=== PATIENT | female | born 1955 | race Caucasian/White ===

== ENCOUNTER 2020-08-16 19:53 | Observation (INO) ==
[2020-08-16] MEDS ORDERED: 0.9 % Sodium Chloride 1,000 ML IVC ONE (20:15)
[2020-08-16 20:45] LABS: Basophils % 0.7 %; Eosinophils # 0.2 K/mcL (0.0-0.6); Eosinophils % 3.8 %; Hematocrit 36.8 % (35.3-44.9); Hemoglobin 12.7 g/dL (11.5-15.4); Immature Granulocytes % 0.3 % (0-4); Lymphocytes # 2.2 K/mcL (0.6-4.6); Lymphocytes % 35.1 %; Mean Corpuscular HGB Conc 34.5 g/dL (31.6-35.5); Mean Corpuscular Hemoglobin 33.4 pg (28.0-33.3); Mean Corpuscular Volume 96.8 fL (83.0-100.0); Mean Platelet Volume 9.8 fL (9.4-12.4); Monocytes # 0.5 K/mcL (0.0-1.3); Neutrophils # 3.2 K/mcL (1.6-8.9); Platelet Count 129 K/mcL (140-400); Red Cell Distribution Width 14.5 % (11.5-14.5); Segmented Neutrophils % 52.1 %; White Blood Count 6.1 K/mcL (4.3-11.1)
[2020-08-16] MEDS ORDERED: Morphine Sulfate 2 MG/ML SYRINGE IVP ONE (21:02)
[2020-08-16 21:06] LABS: Alanine Aminotransferase 22 Units/L (7-52); Albumin 4.5 g/dL (3.5-5.7); Albumin/Globulin Ratio 1.6 (1.1-2.2); Alkaline Phosphatase 100 Units/L (34-104); Aspartate Amino Transferase 48 Units/L (13-39); BUN/Creatinine Ratio 19 (6-26); Bilirubin,Total 0.3 mg/dL (0.3-1.0); Blood Urea Nitrogen 15 mg/dL (8-23); Calcium 8.9 mg/dL (8.6-10.3); Carbon Dioxide 23 mEq/L (23-29); Chloride 94 mEq/L (98-107); Globulin 2.8 g/dL (2.4-3.5); Glucose 95 mg/dL (70-105); Osmolality,Calculated 269 (280-300); Potassium 4.1 mEq/L (3.5-5.1); Sodium 129 mEq/L (136-145); Total Protein 7.3 g/dL (6.4-8.9); Troponin I < 0.03 ng/mL (< 0.04); eGFR For African Americans > 60 (> 60); eGFR For Non-African Americans > 60 (> 60)
[2020-08-16] MEDS ORDERED: Azithromycin 500 MG in 0.9 % Sodium Chloride 250 ML IVPB ONE (21:28)
[2020-08-16] MEDS ORDERED: cefTRIAXone 1,000 MG in Water for inj. (sterile) 10 ML IVP ONE (21:28)
[2020-08-17] MEDS ORDERED: Acetaminophen 325 MG TABLET PO PRN
[2020-08-17] MEDS ORDERED: 0.9 % Sodium Chloride 1,000 ML IVC SCH
[2020-08-17] MEDS ORDERED: Ondansetron ODT 4 MG TAB.RAPDIS SL PRN
[2020-08-17] MEDS ORDERED: Naloxone 0.4 MG/ML INJ IVP PRN
[2020-08-17] MEDS ORDERED: *HR* LORazepam 2 MG/ML VIAL IVP PRN (01:09)
[2020-08-17 02:33] LABS: Bilirubin,Urine Negative (Negative); Blood,Urine Negative (Negative); Clarity,Urine Clear (Clear); Color,Urine Colorless (Yellow); Glucose,Urine (UA) Normal (Normal); Ketones,Urine Negative (Negative); Leukocyte Esterase,Urine Moderate (Negative); Nitrite,Urine Negative (Negative); PH,Urine 6.5 pH Units (5.0-8.0); Protein,Urine Negative (Neg-Trace); RBC,Urine 0-3 per hpf (0-3); Specific Gravity,Urine 1.011 (1.010-1.025); Squamous Epithelial Cell,Urine Few per hpf (None-Few); Transitional Epi Cells,Urine Few per hpf (None-Few); Urobilinogen,Urine Normal (Normal)
[2020-08-17 02:38] LABS: Amphetamine Screen,Urine Negative ng/mL (Cutoff=1000); Barbiturate Screen,Urine Negative ng/mL (Cutoff=200); Benzodiazepines Screen,Urine Positive ng/mL (Cutoff=200); Cannabinoid Screen,Urine Negative ng/mL (Cutoff = 50); Cocaine Screen,Urine Negative ng/mL (Cutoff= 300); Opiate Screen,Urine Positive ng/mL (Cutoff=300); Phencyclidine Screen,Urine Negative ng/mL (Cutoff=25)
[2020-08-17 03:17] VITALS: BP 155/91
[2020-08-17 03:50] LABS: Mean Corpuscular Volume 102.7 fL (83.0-100.0); Red Cell Distribution Width 14.6 % (11.5-14.5)
[2020-08-17 03:52] LABS: Hematocrit 38.2 % (35.3-44.9); Hemoglobin 12.5 g/dL (11.5-15.4); Mean Corpuscular HGB Conc 32.7 g/dL (31.6-35.5); Mean Corpuscular Hemoglobin 33.6 pg (28.0-33.3); Mean Platelet Volume 10.1 fL (9.4-12.4); Red Blood Count 3.72 M/mcL (3.82-4.97); White Blood Count 6.1 K/mcL (4.3-11.1)
[2020-08-17 04:11] LABS: Ethanol < 10 mg/dL (Less than 10)
[2020-08-17 04:14] LABS: BUN/Creatinine Ratio 16 (6-26); Blood Urea Nitrogen 16 mg/dL (8-23); Calcium 8.4 mg/dL (8.6-10.3); Carbon Dioxide 25 mEq/L (23-29); Chloride 99 mEq/L (98-107); Glucose 92 mg/dL (70-105); Magnesium 1.5 mg/dL (1.6-2.6); Osmolality,Calculated 281 (280-300); Phosphorous 3.6 mg/dL (2.7-4.5); Potassium 3.7 mEq/L (3.5-5.1); Sodium 135 mEq/L (136-145); eGFR For African Americans > 60 (> 60); eGFR For Non-African Americans 56 (> 60)
[2020-08-17 04:29] LABS: Prolactin 8.12 ng/mL (3.80-23.20); Thyroid Stimulating Hormone 6.498 mcIU/mL (0.340-5.600)
[2020-08-17] MEDS ORDERED: cefTRIAXone 1,000 MG in Water for inj. (sterile) 10 ML IVP SCH (09:00)
[2020-08-17] MEDS ORDERED: levETIRAcetam 250 MG TABLET PO SCH (09:00)
[2020-08-17] MEDS ORDERED: (Terbinafine Hcl [Terbinafine Hcl] 250 MG) PO SCH (09:00)
[2020-08-17] MEDS ORDERED: FLU Vac QV 20-21 (6Month+)/PF 0.5 ML SYRINGE IM ONE (10:16)
== END 2020-08-17 11:05 | disposition home or self-care (01) ==
LOC: EMEROOARM 19:53 → 2ANU 19:53
PROVIDERS: ADMIT Student in an Organized Health Care Education/Training Program; ATTEND Student in an Organized Health Care Education/Training Program

== ENCOUNTER 2020-09-09 13:00 | Observation (INO) ==
[2020-09-09] MEDS ORDERED: Isovue-370 500 ML BOTTLE IVP ONE (13:14)
[2020-09-09] MEDS ORDERED: 0.9 % Sodium Chloride 1,000 ML IVC ONE ×2 (13:17→18:47)
[2020-09-09 13:46] LABS: Basophils # 0.1 K/mcL (0.0-0.2); Basophils % 0.9 %; Eosinophils # 0.2 K/mcL (0.0-0.6); Hematocrit 36.9 % (35.3-44.9); Hemoglobin 12.7 g/dL (11.5-15.4); Immature Granulocytes % 0.2 % (0-4); Lymphocytes # 1.7 K/mcL (0.6-4.6); Lymphocytes % 30.9 %; Mean Corpuscular HGB Conc 34.4 g/dL (31.6-35.5); Mean Corpuscular Hemoglobin 34.1 pg (28.0-33.3); Mean Corpuscular Volume 99.2 fL (83.0-100.0); Mean Platelet Volume 9.4 fL (9.4-12.4); Monocytes # 0.3 K/mcL (0.0-1.3); Monocytes % 5.9 %; Neutrophils # 3.3 K/mcL (1.6-8.9); Platelet Count 105 K/mcL (140-400); Red Blood Count 3.72 M/mcL (3.82-4.97); Red Cell Distribution Width 14.1 % (11.5-14.5); Segmented Neutrophils % 59.1 %; White Blood Count 5.6 K/mcL (4.3-11.1)
[2020-09-09] MEDS ORDERED: Ketorolac 15 MG/ML VIAL IVP ONE (14:09)
[2020-09-09 14:12] LABS: Bilirubin,Urine Negative (Negative); Blood,Urine Negative (Negative); Clarity,Urine Clear (Clear); Color,Urine Colorless (Yellow); Glucose,Urine (UA) Normal (Normal); Ketones,Urine Negative (Negative); Leukocyte Esterase,Urine Negative (Negative); Nitrite,Urine Negative (Negative); Protein,Urine Negative (Neg-Trace); Specific Gravity,Urine 1.011 (1.010-1.025); Urobilinogen,Urine Normal (Normal)
[2020-09-09 14:41] LABS: Alanine Aminotransferase 34 Units/L (7-52); Albumin 4.8 g/dL (3.5-5.7); Albumin/Globulin Ratio 1.8 (1.1-2.2); Alkaline Phosphatase 99 Units/L (34-104); Aspartate Amino Transferase 68 Units/L (13-39); BUN/Creatinine Ratio 16 (6-26); Bilirubin,Direct 0.1 mg/dL (0.0-0.2); Bilirubin,Indirect 0.3 mg/dL (0.0-1.0); Bilirubin,Total 0.4 mg/dL (0.3-1.0); Blood Urea Nitrogen 12 mg/dL (8-23); Calcium 8.9 mg/dL (8.6-10.3); Carbon Dioxide 26 mEq/L (23-29); Chloride 90 mEq/L (98-107); Globulin 2.7 g/dL (2.4-3.5); Glucose 94 mg/dL (70-105); Lipase 21 Units/L (11-82); Osmolality,Calculated 266 (280-300); Potassium 3.8 mEq/L (3.5-5.1); Sodium 128 mEq/L (136-145); Total Protein 7.5 g/dL (6.4-8.9); Troponin I < 0.03 ng/mL (< 0.04); eGFR For African Americans > 60 (> 60); eGFR For Non-African Americans > 60 (> 60)
[2020-09-09] MEDS ORDERED: Ipratropium/Albuterol Neb 3 ML ONE (15:10)
[2020-09-09] MEDS ORDERED: Ipratropium/Albuterol Neb 3 ML IH ONE (15:13)
[2020-09-09] MEDS ORDERED: Morphine Sulfate 2 MG/ML SYRINGE IVP STA ×2 (16:36→18:47)
[2020-09-09] MEDS ORDERED: Vancomycin 1,250 MG/262.5 ML IV.SOLN IVPB ONE (19:12)
[2020-09-09] MEDS ORDERED: Piperacillin/Tazobactam 3.375 GM in 0.9 % Sodium Chloride Mini Bag 100 ML IVPB ONE (19:12)
[2020-09-09 20:14] LABS: Ethanol 265 mg/dL (Less than 10)
[2020-09-09] MEDS ORDERED: *HR* Promethazine 25 MG/ML VIAL IM PRN (21:00)
[2020-09-09] MEDS ORDERED: *HR* OxyCODONE Immed Rel 5 MG TABLET PO PRN (21:00)
[2020-09-09] MEDS ORDERED: Acetaminophen 325 MG TABLET PO PRN (21:00)
[2020-09-09] MEDS ORDERED: Ringers Solution, Lactated 1,000 ML IVC SCH (21:00)
[2020-09-09] MEDS ORDERED: Naloxone 0.4 MG/ML INJ IVP PRN (21:00)
[2020-09-09] MEDS ORDERED: Ondansetron 4 MG/2 ML VIAL IVP PRN (21:00)
[2020-09-09] MEDS ORDERED: *HR* LORazepam 2 MG/ML VIAL IVP PRN ×3 (21:02)
[2020-09-09 21:23] VITALS: BP 146/89
[2020-09-10] MEDS ORDERED: Thiamine (B-1) 100 MG, Folic Acid 1 MG, MVI, adult with vitamin K 10 ML in 0.9 % Sodi... IVPB SCH (18:00)
== END 2020-09-09 22:51 | disposition left against medical advice (07) ==
LOC: 3BNU 13:00 → EMEROOARM 13:00 → 3BNU 21:22
PROVIDERS: ADMIT Family Medicine; ATTEND Family Medicine

== ENCOUNTER 2020-12-15 12:43 | Observation (INO) ==
[2020-12-15] MEDS ORDERED: 0.9 % Sodium Chloride 1,000 ML IVC ONE (12:51)
[2020-12-15 13:45] LABS: Basophils # 0.1 K/mcL (0.0-0.2); Basophils % 0.7 %; Eosinophils # 0.2 K/mcL (0.0-0.6); Eosinophils % 2.9 %; Hematocrit 40.7 % (35.3-44.9); Hemoglobin 13.7 g/dL (11.5-15.4); Immature Granulocytes % 0.7 % (0-4); Lymphocytes # 2.1 K/mcL (0.6-4.6); Lymphocytes % 28.2 %; Mean Corpuscular HGB Conc 33.7 g/dL (31.6-35.5); Mean Corpuscular Hemoglobin 33.3 pg (28.0-33.3); Mean Corpuscular Volume 98.8 fL (83.0-100.0); Mean Platelet Volume 10.9 fL (9.4-12.4); Monocytes # 0.4 K/mcL (0.0-1.3); Monocytes % 5.5 %; Neutrophils # 4.7 K/mcL (1.6-8.9); Platelet Count 142 K/mcL (140-400); Red Blood Count 4.12 M/mcL (3.82-4.97); Red Cell Distribution Width 14.3 % (11.5-14.5); White Blood Count 7.6 K/mcL (4.3-11.1)
[2020-12-15 14:02] LABS: Acetaminophen < 10 mcg/mL (10-20); BUN/Creatinine Ratio 29 (6-26); Blood Urea Nitrogen 26 mg/dL (8-23); Calcium 9.8 mg/dL (8.6-10.3); Carbon Dioxide 26 mEq/L (23-29); Chloride 95 mEq/L (98-107); Chol/HDL Ratio 2.9 (0-4.9); Cholesterol 174 mg/dL (< 200); Ethanol 237 mg/dL (Less than 10); Glucose 93 mg/dL (70-105); HDL Cholesterol 59 mg/dL (40-59); LDL Cholesterol,Calculated 67 mg/dL (< 100); Osmolality,Calculated 284 (280-300); Potassium 3.9 mEq/L (3.5-5.1); Salicylate < 2.5 mg/dL (15.0-30.0); Sodium 135 mEq/L (136-145); Triglycerides 238 mg/dL (< 150); eGFR For African Americans > 60 (> 60); eGFR For Non-African Americans > 60 (> 60)
[2020-12-15 14:12] LABS: Bilirubin,Urine Negative (Negative); Blood,Urine Negative (Negative); Clarity,Urine Clear (Clear); Color,Urine Colorless (Yellow); Glucose,Urine (UA) Normal (Normal); Ketones,Urine Trace mg/dL (Negative); Leukocyte Esterase,Urine Trace (Negative); Nitrite,Urine Negative (Negative); PH,Urine 5.5 pH Units (5.0-8.0); Protein,Urine Negative (Neg-Trace); RBC,Urine 0-3 per hpf (0-3); Specific Gravity,Urine 1.014 (1.010-1.025); Squamous Epithelial Cell,Urine Few per hpf (None-Few); Urobilinogen,Urine Normal (Normal)
[2020-12-15 14:20] LABS: Amphetamine Screen,Urine Negative ng/mL (Cutoff=1000); Barbiturate Screen,Urine Negative ng/mL (Cutoff=200); Benzodiazepines Screen,Urine Positive ng/mL (Cutoff=200); Cannabinoid Screen,Urine Negative ng/mL (Cutoff = 50); Cocaine Screen,Urine Negative ng/mL (Cutoff= 300); Opiate Screen,Urine Negative ng/mL (Cutoff=300); Phencyclidine Screen,Urine Negative ng/mL (Cutoff=25)
[2020-12-15] MEDS ORDERED: Naloxone 0.4 MG/ML INJ IVP PRN (16:06)
[2020-12-15] MEDS ORDERED: Ondansetron ODT 4 MG TAB.RAPDIS SL PRN (16:06)
[2020-12-15] MEDS ORDERED: MOM Conc 10 ML UD.LIQ PO PRN (16:06)
[2020-12-16] MEDS: *HR* Enoxaparin 40 MG/0.4 ML SYRINGE SQ SCH (05:03)
[2020-12-16 06:47] LABS: Hematocrit 39.2 % (35.3-44.9); Hemoglobin 13.2 g/dL (11.5-15.4); Mean Corpuscular HGB Conc 33.7 g/dL (31.6-35.5); Platelet Count 122 K/mcL (140-400); Red Blood Count 3.88 M/mcL (3.82-4.97); Red Cell Distribution Width 14.3 % (11.5-14.5); White Blood Count 7.1 K/mcL (4.3-11.1)
[2020-12-16 07:34] LABS: Alanine Aminotransferase 24 Units/L (7-52); Albumin 4.2 g/dL (3.5-5.7); Albumin/Globulin Ratio 1.3 (1.1-2.2); Alkaline Phosphatase 99 Units/L (34-104); Aspartate Amino Transferase 40 Units/L (13-39); BUN/Creatinine Ratio 32 (6-26); Bilirubin,Total 0.9 mg/dL (0.3-1.0); Blood Urea Nitrogen 27 mg/dL (8-23); Calcium 9.4 mg/dL (8.6-10.3); Carbon Dioxide 24 mEq/L (23-29); Chloride 98 mEq/L (98-107); Globulin 3.3 g/dL (2.4-3.5); Glucose 93 mg/dL (70-105); Osmolality,Calculated 285 (280-300); Potassium 3.8 mEq/L (3.5-5.1); Sodium 135 mEq/L (136-145); Total Protein 7.5 g/dL (6.4-8.9); eGFR For African Americans > 60 (> 60); eGFR For Non-African Americans > 60 (> 60)
[2020-12-16 09:32] LABS: Estimated Average Glucose 82 mg/dl; Hemoglobin A1C 4.5 %
[2020-12-17] MEDS ORDERED: Ketorolac 15 MG/ML VIAL IVP ONE ×2 (01:06→08:17)
[2020-12-17] MEDS: *HR* Enoxaparin 40 MG/0.4 ML SYRINGE SQ SCH (05:33)
[2020-12-17] MEDS ORDERED: levETIRAcetam 250 MG TABLET PO SCH (09:00)
[2020-12-17 11:54] VITALS: BP 110/75
[2020-12-17] MEDS ORDERED: *HR* OxyCODONE Immed Rel 5 MG TABLET PO PRN ×2 (14:01)
== END 2020-12-17 16:24 ==
LOC: 3BNU 12:43 → EMEROOARM 12:43 → SUATTDRO 15:42 → 3BNU 16:15
PROVIDERS: ADMIT Internal Medicine; ATTEND Registered Nurse

== ENCOUNTER 2021-01-04 13:07 | Inpatient (IN) ==
[~2021-01-04 13:07] MED LIST: *HR* Etomidate 20 MG/10 ML AMPUL IVP ONE; *HR* Rocuronium Bromide 50 MG/5 ML VIAL IVP ONE
[2021-01-04] MEDS ORDERED: *HR* FentaNYL (PF) 1,000 MCG/20 ML VIAL ONE (13:54)
[2021-01-04] MEDS: FentaNYL (PF) 1,000 MCG/100 ML IV.SOLN IVC SCH ×2 (14:07→22:16)
[2021-01-04 14:18] LABS: Bacteria,Urine Few per hpf (None-Few); Bilirubin,Urine Negative (Negative); Blood,Urine Negative (Negative); Clarity,Urine Clear (Clear); Color,Urine Light-Yellow (Yellow); Glucose,Urine (UA) Normal (Normal); Hyaline Casts,Urine Few per lpf (None Seen); Ketones,Urine Negative (Negative); Leukocyte Esterase,Urine Small (Negative); Mucus,Urine Few per lpf (None-Few); Nitrite,Urine Negative (Negative); PH,Urine 5.5 pH Units (5.0-8.0); Protein,Urine Negative (Neg-Trace); RBC,Urine 0-3 per hpf (0-3); Specific Gravity,Urine 1.022 (1.010-1.025); Squamous Epithelial Cell,Urine Few per hpf (None-Few); Urobilinogen,Urine Normal (Normal)
[2021-01-04 14:33] LABS: Amphetamine Screen,Urine Negative ng/mL (Cutoff=1000); Barbiturate Screen,Urine Negative ng/mL (Cutoff=200); Benzodiazepines Screen,Urine Positive ng/mL (Cutoff=200); Cannabinoid Screen,Urine Negative ng/mL (Cutoff = 50); Cocaine Screen,Urine Negative ng/mL (Cutoff= 300); Opiate Screen,Urine Negative ng/mL (Cutoff=300); Phencyclidine Screen,Urine Negative ng/mL (Cutoff=25)
[2021-01-04 15:02] LABS: Basophils # 0.1 K/mcL (0.0-0.2); Basophils % 0.7 %; Eosinophils # 0.2 K/mcL (0.0-0.6); Eosinophils % 1.4 %; Hematocrit 38.8 % (35.3-44.9); Hemoglobin 12.9 g/dL (11.5-15.4); Immature Granulocytes % 0.8 % (0-4); Lymphocytes # 2.9 K/mcL (0.6-4.6); Lymphocytes % 21.9 %; Mean Corpuscular HGB Conc 33.2 g/dL (31.6-35.5); Mean Corpuscular Hemoglobin 33.2 pg (28.0-33.3); Mean Platelet Volume 10.8 fL (9.4-12.4); Monocytes # 0.7 K/mcL (0.0-1.3); Neutrophils # 9.3 K/mcL (1.6-8.9); Platelet Count 160 K/mcL (140-400); Red Blood Count 3.88 M/mcL (3.82-4.97); Red Cell Distribution Width 14.5 % (11.5-14.5); Segmented Neutrophils % 70.2 %; White Blood Count 13.3 K/mcL (4.3-11.1)
[2021-01-04 15:11] LABS: INR 1.1; Prothrombin Time 12.7 Seconds (9.4-12.1)
[2021-01-04 15:14] LABS: Activated Partial Thrombo Time 27.8 Seconds (26.0-36.0)
[2021-01-04 15:24] LABS: Acetaminophen < 10 mcg/mL (10-20); Alanine Aminotransferase 51 Units/L (7-52); Albumin 3.9 g/dL (3.5-5.7); Albumin/Globulin Ratio 1.2 (1.1-2.2); Alkaline Phosphatase 130 Units/L (34-104); Aspartate Amino Transferase 101 Units/L (13-39); BUN/Creatinine Ratio 29 (6-26); Bilirubin,Direct 0.1 mg/dL (0.0-0.2); Bilirubin,Indirect 0.4 mg/dL (0.0-1.0); Bilirubin,Total 0.5 mg/dL (0.3-1.0); Blood Urea Nitrogen 21 mg/dL (8-23); Calcium 8.1 mg/dL (8.6-10.3); Carbon Dioxide 22 mEq/L (23-29); Chloride 100 mEq/L (98-107); Creatine Kinase 53 Units/L (30-223); Ethanol 291 mg/dL (Less than 10); Globulin 3.2 g/dL (2.4-3.5); Glucose 104 mg/dL (70-105); Osmolality,Calculated 285 (280-300); Potassium 3.8 mEq/L (3.5-5.1); Salicylate < 2.5 mg/dL (15.0-30.0); Sodium 136 mEq/L (136-145); Total Protein 7.1 g/dL (6.4-8.9); Troponin I < 0.03 ng/mL (< 0.04); eGFR For African Americans > 60 (> 60); eGFR For Non-African Americans > 60 (> 60)
[2021-01-04] MEDS ORDERED: Artificial Tears SOLN 15 ML BOTTLE BOTH EYES PRN (16:40)
[2021-01-04] MEDS ORDERED: Naloxone 0.4 MG/ML INJ IVP PRN (16:40)
[2021-01-04] MEDS ORDERED: D5% in 0.9% NACL w KCl 20 MEQ/1,000 ML MLS IVC SCH (17:15)
[2021-01-04] MEDS: Midazolam HCl 50 MG/100 ML IV.SOLN IVC SCH ×2 (17:20→22:20)
[2021-01-04] MEDS: Calcium Gluconate 1gm/50mL 1 GM/50 ML BAG IVPB SCH ×2 (17:55→18:28)
[2021-01-04] MEDS: *HR* Heparin 5,000 UNIT/ML VIAL SQ SCH (17:55)
[2021-01-04] MEDS: Pantoprazole 40 MG VIAL IVP SCH (17:55)
[2021-01-04] MEDS: D5% in Lactated Ringers 1,000 ML IVC SCH (19:00)
[2021-01-04 20:19] LABS: ABG Base Excess 0 mEq/L (-2 to 3); ABG HCO3 25 mEq/L (21-27); ABG Oxygen Saturation 97 % (95-98); ABG PCO2 41 mmHg (35-45); ABG PO2 91 mmHg (85-104); ABG TCO2 26 mEq/L (20-26); Blood Gas Modality AF; Blood Gas VT 500 cc
[2021-01-04] MEDS: Budesonide/Formoterol 160/4.5 1 PUFF INH IH SCH (20:23)
[2021-01-04 20:59] LABS: VBG Ionized Calcium 1.04 mmol/L (1.15-1.35)
[2021-01-04] MEDS: Artificial Tears SOLN 15 ML BOTTLE BOTH EYES SCH (21:00)
[2021-01-04] MEDS: Chlorhexidine Rinse 15 ML MOUTHWASH MM SCH (21:00)
[2021-01-04 21:16] LABS: Alanine Aminotransferase 42 Units/L (7-52); Albumin 3.6 g/dL (3.5-5.7); Albumin/Globulin Ratio 1.3 (1.1-2.2); Alkaline Phosphatase 106 Units/L (34-104); Aspartate Amino Transferase 70 Units/L (13-39); BUN/Creatinine Ratio 30 (6-26); Bilirubin,Total 0.6 mg/dL (0.3-1.0); Blood Urea Nitrogen 22 mg/dL (8-23); Calcium 8.6 mg/dL (8.6-10.3); Carbon Dioxide 24 mEq/L (23-29); Chloride 100 mEq/L (98-107); Globulin 2.8 g/dL (2.4-3.5); Glucose 95 mg/dL (70-105); Magnesium 1.3 mg/dL (1.6-2.6); Osmolality,Calculated 287 (280-300); Phosphorous 4.6 mg/dL (2.7-4.5); Potassium 4.1 mEq/L (3.5-5.1); Sodium 137 mEq/L (136-145); Total Protein 6.4 g/dL (6.4-8.9); eGFR For African Americans > 60 (> 60); eGFR For Non-African Americans > 60 (> 60)
[2021-01-04] MEDS: Calcium Gluconate 1gm/50mL 1 GM/50 ML BAG IVPB PRN (23:25)
[2021-01-05] MEDS: Artificial Tears SOLN 15 ML BOTTLE BOTH EYES SCH ×7 (00:28→21:22)
[2021-01-05] MEDS: Piperacillin/Tazobactam 3.375 GM in 0.9 % Sodium Chloride Mini Bag 100 ML IVPB SCH ×3 (00:30→15:58)
[2021-01-05 04:26] LABS: ABG Base Excess 2 mEq/L (-2 to 3); ABG HCO3 28 mEq/L (21-27); ABG Oxygen Saturation 95 % (95-98); ABG PCO2 45 mmHg (35-45); ABG PO2 75 mmHg (85-104); ABG TCO2 29 mEq/L (20-26); Blood Gas Modality AF; Blood Gas VT 500 cc
[2021-01-05] MEDS: FentaNYL (PF) 1,000 MCG/100 ML IV.SOLN IVC SCH (04:38)
[2021-01-05] MEDS: Midazolam HCl 50 MG/100 ML IV.SOLN IVC SCH ×2 (04:41→07:30)
[2021-01-05 05:05] LABS: VBG Ionized Calcium 0.96 mmol/L (1.15-1.35)
[2021-01-05 05:18] LABS: Albumin 3.5 g/dL (3.5-5.7); Albumin/Globulin Ratio 1.3 (1.1-2.2); Bilirubin,Direct 0.1 mg/dL (0.0-0.2); Bilirubin,Indirect 0.6 mg/dL (0.0-1.0); Bilirubin,Total 0.7 mg/dL (0.3-1.0); Calcium 8.3 mg/dL (8.6-10.3); Globulin 2.8 g/dL (2.4-3.5); Magnesium 1.2 mg/dL (1.6-2.6); Phosphorous 6.5 mg/dL (2.7-4.5); Potassium 4.6 mEq/L (3.5-5.1); Total Protein 6.3 g/dL (6.4-8.9)
[2021-01-05] MEDS: D5% in Lactated Ringers 1,000 ML IVC SCH ×2 (05:54→11:48)
[2021-01-05] MEDS: *HR* Heparin 5,000 UNIT/ML VIAL SQ SCH ×2 (05:54→18:12)
[2021-01-05 06:01] LABS: Basophils # 0.1 K/mcL (0.0-0.2); Basophils % 0.5 %; Eosinophils # 0.2 K/mcL (0.0-0.6); Eosinophils % 1.8 %; Hematocrit 35.1 % (35.3-44.9); Hemoglobin 11.4 g/dL (11.5-15.4); Immature Granulocytes % 0.5 % (0-4); Lymphocytes # 2.6 K/mcL (0.6-4.6); Lymphocytes % 20.3 %; Mean Corpuscular HGB Conc 32.5 g/dL (31.6-35.5); Mean Corpuscular Hemoglobin 33.5 pg (28.0-33.3); Mean Corpuscular Volume 103.2 fL (83.0-100.0); Mean Platelet Volume 11.2 fL (9.4-12.4); Monocytes # 1.2 K/mcL (0.0-1.3); Monocytes % 9.5 %; Neutrophils # 8.8 K/mcL (1.6-8.9); Platelet Count 122 K/mcL (140-400); Red Cell Distribution Width 14.8 % (11.5-14.5); Segmented Neutrophils % 67.4 %
[2021-01-05] MEDS: Calcium Gluconate 1gm/50mL 1 GM/50 ML BAG IVPB PRN ×3 (07:02→23:28)
[2021-01-05] MEDS: Budesonide/Formoterol 160/4.5 1 PUFF INH IH SCH ×2 (07:20→19:38)
[2021-01-05] MEDS: Chlorhexidine Rinse 15 ML MOUTHWASH MM SCH ×2 (07:44→19:19)
[2021-01-05] MEDS: Pantoprazole 40 MG VIAL IVP SCH (07:44)
[2021-01-05 10:31] LABS: VBG Ionized Calcium 0.97 mmol/L (1.15-1.35)
[2021-01-05 10:37] LABS: Hematocrit 33.9 % (35.3-44.9); Hemoglobin 11.3 g/dL (11.5-15.4); Mean Corpuscular HGB Conc 33.3 g/dL (31.6-35.5); Nucleated Red Blood Cells 0.2 /100 WBC (0); Red Cell Distribution Width 14.7 % (11.5-14.5)
[2021-01-05 10:39] LABS: Basophils # 0.1 K/mcL (0.0-0.2); Basophils % 0.5 %; Eosinophils # 0.2 K/mcL (0.0-0.6); Eosinophils % 1.8 %; Immature Granulocytes % 0.6 % (0-4); Immature Platelets 8.4 % (1.1-6.1); Lymphocytes # 2.5 K/mcL (0.6-4.6); Mean Corpuscular Hemoglobin 33.6 pg (28.0-33.3); Mean Corpuscular Volume 100.9 fL (83.0-100.0); Mean Platelet Volume 11.3 fL (9.4-12.4); Monocytes # 1.2 K/mcL (0.0-1.3); Monocytes % 9.1 %; Platelet Count 105 K/mcL (140-400); Red Blood Count 3.36 M/mcL (3.82-4.97); White Blood Count 13.1 K/mcL (4.3-11.1)
[2021-01-05 10:54] LABS: Albumin 3.6 g/dL (3.5-5.7); Albumin/Globulin Ratio 1.2 (1.1-2.2); Bilirubin,Total 1.1 mg/dL (0.3-1.0); Calcium 8.5 mg/dL (8.6-10.3); Magnesium 1.7 mg/dL (1.6-2.6); Phosphorous 5.7 mg/dL (2.7-4.5); Potassium 4.7 mEq/L (3.5-5.1); Total Protein 6.6 g/dL (6.4-8.9)
[2021-01-05] MEDS ORDERED: *HR* LORazepam 2 MG/ML VIAL IVP PRN ×3 (12:49)
[2021-01-05 13:30] LABS: VBG Ionized Calcium 1.04 mmol/L (1.15-1.35)
[2021-01-05 13:45] LABS: Calcium 8.6 mg/dL (8.6-10.3); Magnesium 1.6 mg/dL (1.6-2.6); Potassium 3.9 mEq/L (3.5-5.1)
[2021-01-05 15:16] LABS: VBG Ionized Calcium 1.08 mmol/L (1.15-1.35)
[2021-01-05 15:35] LABS: Albumin 3.7 g/dL (3.5-5.7); Albumin/Globulin Ratio 1.2 (1.1-2.2); Bilirubin,Total 1.3 mg/dL (0.3-1.0); Calcium 8.7 mg/dL (8.6-10.3); Magnesium 1.8 mg/dL (1.6-2.6); Phosphorous 4.8 mg/dL (2.7-4.5); Total Protein 6.7 g/dL (6.4-8.9)
[2021-01-05] MEDS ORDERED: Thiamine (B-1) 100 MG, Folic Acid 1 MG, MVI, adult with vitamin K 10 ML in 0.9 % Sodi... IVPB SCH (18:00)
[2021-01-05] MEDS: Doxycycline 100 MG in 0.9 % Sodium Chloride Mini Bag 100 ML IVPB SCH (20:21)
[2021-01-05] MEDS ORDERED: Acetaminophen 325 MG RECTAL SUPP RC PRN (20:39)
[2021-01-05] MEDS: Acetaminophen 325 MG TABLET PO PRN (21:10)
[2021-01-05 22:38] LABS: VBG Ionized Calcium 1.06 mmol/L (1.15-1.35)
[2021-01-05 22:39] LABS: Albumin 3.7 g/dL (3.5-5.7); Albumin/Globulin Ratio 1.3 (1.1-2.2); Bilirubin,Total 1.4 mg/dL (0.3-1.0); Calcium 8.5 mg/dL (8.6-10.3); Globulin 2.9 g/dL (2.4-3.5); Magnesium 1.9 mg/dL (1.6-2.6); Phosphorous 3.5 mg/dL (2.7-4.5); Potassium 3.9 mEq/L (3.5-5.1); Total Protein 6.6 g/dL (6.4-8.9)
[2021-01-06] MEDS: D5% in Lactated Ringers 1,000 ML IVC SCH (00:04)
[2021-01-06] MEDS: Piperacillin/Tazobactam 3.375 GM in 0.9 % Sodium Chloride Mini Bag 100 ML IVPB SCH ×2 (00:13→07:19)
[2021-01-06] MEDS: Artificial Tears SOLN 15 ML BOTTLE BOTH EYES SCH ×2 (02:24→07:16)
[2021-01-06] MEDS: Acetaminophen 325 MG TABLET PO PRN (03:41)
[2021-01-06 03:49] LABS: VBG Ionized Calcium 1.13 mmol/L (1.15-1.35)
[2021-01-06 04:09] LABS: Albumin 3.5 g/dL (3.5-5.7); Albumin/Globulin Ratio 1.3 (1.1-2.2); Bilirubin,Total 1.5 mg/dL (0.3-1.0); Calcium 8.5 mg/dL (8.6-10.3); Globulin 2.8 g/dL (2.4-3.5); Magnesium 1.8 mg/dL (1.6-2.6); Phosphorous 3.7 mg/dL (2.7-4.5); Potassium 3.7 mEq/L (3.5-5.1); Total Protein 6.3 g/dL (6.4-8.9)
[2021-01-06] MEDS: Doxycycline 100 MG in 0.9 % Sodium Chloride Mini Bag 100 ML IVPB SCH (05:00)
[2021-01-06] MEDS: *HR* Heparin 5,000 UNIT/ML VIAL SQ SCH ×2 (05:01→16:48)
[2021-01-06] MEDS: Calcium Gluconate 1gm/50mL 1 GM/50 ML BAG IVPB PRN (05:01)
[2021-01-06] MEDS: Chlorhexidine Rinse 15 ML MOUTHWASH MM SCH (07:16)
[2021-01-06] MEDS: Pantoprazole 40 MG VIAL IVP SCH (07:19)
[2021-01-06] MEDS: Budesonide/Formoterol 160/4.5 1 PUFF INH IH SCH ×3 (08:04→21:44)
[2021-01-06] MEDS ORDERED: levETIRAcetam 250 MG TABLET PO SCH (09:00)
[2021-01-06] MEDS ORDERED: Acetaminophen 325 MG TABLET PO PRN (09:02)
[2021-01-06] MEDS ORDERED: *HR* LORazepam 2 MG/ML VIAL IVP PRN ×2 (09:02)
[2021-01-06] MEDS ORDERED: Artificial Tears SOLN 15 ML BOTTLE BOTH EYES PRN (09:02)
[2021-01-06] MEDS: lisinopriL 20 MG TABLET PO SCH (09:27)
[2021-01-06] MEDS: hydroCHLOROthiazide 25 MG TABLET PO SCH (09:28)
[2021-01-06] MEDS: Thiamine (B-1) 100 MG TABLET PO SCH (09:28)
[2021-01-06 10:10] LABS: Hemoglobin 10.2 g/dL (11.5-15.4); Mean Corpuscular HGB Conc 32.9 g/dL (31.6-35.5); Mean Corpuscular Hemoglobin 33.8 pg (28.0-33.3); Mean Corpuscular Volume 102.6 fL (83.0-100.0); Mean Platelet Volume 11.9 fL (9.4-12.4); Platelet Count 114 K/mcL (140-400); Red Blood Count 3.02 M/mcL (3.82-4.97); Red Cell Distribution Width 14.6 % (11.5-14.5); White Blood Count 16.9 K/mcL (4.3-11.1)
[2021-01-06] MEDS: *HR* LORazepam 2 MG/ML VIAL IVP PRN (19:41)
[2021-01-06] MEDS ORDERED: Dexmedetomidine HCl 400 MCG/100 ML MLS IVC ONE (20:24)
[2021-01-06] MEDS: Dexmedetomidine HCl 400 MCG/100 ML MLS IVC SCH (20:41)
[2021-01-06] MEDS: levETIRAcetam 250 MG TABLET PO SCH (20:41)
[2021-01-06] MEDS ORDERED: *HR* LORazepam 2 MG/ML VIAL IVP STA (22:09)
[2021-01-06] MEDS ORDERED: *HR* LORazepam 2 MG/ML VIAL ONE (22:12)
[2021-01-06] MEDS ORDERED: Doxycycline 200 MG in 0.9 % Sodium Chloride Mini Bag 100 ML IVPB ONE (23:11)
[2021-01-06] MEDS ORDERED: Doxycycline 200 MG in 0.9 % Sodium Chloride 100 ML IVPB ONE (23:30)
[2021-01-07] MEDS ORDERED: Ziprasidone 10 MG in Water for inj. (sterile) 0.5 ML IM ONE (00:36)
[2021-01-07] MEDS: 0.9 % Sodium Chloride 1,000 ML IVC SCH ×2 (00:47→10:51)
[2021-01-07] MEDS: Dexmedetomidine HCl 400 MCG/100 ML MLS IVC SCH ×2 (00:54→08:17)
[2021-01-07] MEDS: *HR* Heparin 5,000 UNIT/ML VIAL SQ SCH ×2 (05:29→16:59)
[2021-01-07] MEDS: Budesonide/Formoterol 160/4.5 1 PUFF INH IH SCH ×2 (07:44→21:49)
[2021-01-07 07:45] LABS: Hemoglobin 9.2 g/dL (11.5-15.4); Red Cell Distribution Width 14.3 % (11.5-14.5)
[2021-01-07 07:47] LABS: Hematocrit 28.3 % (35.3-44.9); Immature Platelets 8.5 % (1.1-6.1); Mean Corpuscular HGB Conc 32.5 g/dL (31.6-35.5); Mean Corpuscular Hemoglobin 33.6 pg (28.0-33.3); Mean Corpuscular Volume 103.3 fL (83.0-100.0); Mean Platelet Volume 12.2 fL (9.4-12.4); Red Blood Count 2.74 M/mcL (3.82-4.97); White Blood Count 7.7 K/mcL (4.3-11.1)
[2021-01-07 08:10] LABS: BUN/Creatinine Ratio 28 (6-26); Blood Urea Nitrogen 30 mg/dL (8-23); Calcium 8.6 mg/dL (8.6-10.3); Carbon Dioxide 25 mEq/L (23-29); Chloride 104 mEq/L (98-107); Glucose 100 mg/dL (70-105); Osmolality,Calculated 290 (280-300); Potassium 3.2 mEq/L (3.5-5.1); Sodium 137 mEq/L (136-145); eGFR For African Americans > 60 (> 60); eGFR For Non-African Americans 50 (> 60)
[2021-01-07] MEDS: lisinopriL 20 MG TABLET PO SCH (08:13)
[2021-01-07] MEDS: hydroCHLOROthiazide 25 MG TABLET PO SCH (08:13)
[2021-01-07] MEDS: Thiamine (B-1) 100 MG TABLET PO SCH (08:13)
[2021-01-07] MEDS: levETIRAcetam 250 MG TABLET PO SCH ×2 (08:13→21:23)
[2021-01-07] MEDS ORDERED: 0.9 % Sodium Chloride 500 ML IV ONE (10:48)
[2021-01-07] MEDS ORDERED: Ipratropium/Albuterol Neb 3 ML IH SCH (21:00)
[2021-01-07] MEDS: Ipratropium/Albuterol Neb 3 ML IH SCH ×2 (21:35→23:25)
[2021-01-07] MEDS: Albuterol 2.5 MG/3 ML NEBULIZER IH PRN (21:46)
[2021-01-08] MEDS: Albuterol 2.5 MG/3 ML NEBULIZER IH PRN ×3 (02:10→08:49)
[2021-01-08] MEDS: Ipratropium/Albuterol Neb 3 ML IH SCH ×6 (03:21→23:18)
[2021-01-08] MEDS ORDERED: *HR* Metoprolol 5 MG/5 ML VIAL IVP ONE ×2 (03:44→06:06)
[2021-01-08] MEDS: *HR* Heparin 5,000 UNIT/ML VIAL SQ SCH ×2 (05:49→17:27)
[2021-01-08] MEDS: MethylPREDNISolone 40 MG/ML VIAL IVP SCH ×2 (05:49→17:27)
[2021-01-08 06:16] LABS: Red Cell Distribution Width 14.2 % (11.5-14.5)
[2021-01-08 06:18] LABS: Hematocrit 29.5 % (35.3-44.9); Hemoglobin 9.9 g/dL (11.5-15.4); Immature Platelets 7.7 % (1.1-6.1); Mean Corpuscular HGB Conc 33.6 g/dL (31.6-35.5); Mean Corpuscular Hemoglobin 33.4 pg (28.0-33.3); Mean Corpuscular Volume 99.7 fL (83.0-100.0); Mean Platelet Volume 11.2 fL (9.4-12.4); Red Blood Count 2.96 M/mcL (3.82-4.97); White Blood Count 6.6 K/mcL (4.3-11.1)
[2021-01-08 06:19] LABS: BUN/Creatinine Ratio 21 (6-26); Blood Urea Nitrogen 18 mg/dL (8-23); Calcium 8.7 mg/dL (8.6-10.3); Carbon Dioxide 28 mEq/L (23-29); Chloride 105 mEq/L (98-107); Glucose 110 mg/dL (70-105); Osmolality,Calculated 295 (280-300); Potassium 3.4 mEq/L (3.5-5.1); Sodium 141 mEq/L (136-145); eGFR For African Americans > 60 (> 60); eGFR For Non-African Americans > 60 (> 60)
[2021-01-08] MEDS: Budesonide/Formoterol 160/4.5 1 PUFF INH IH SCH ×2 (07:57→19:48)
[2021-01-08] MEDS: Thiamine (B-1) 100 MG TABLET PO SCH (08:34)
[2021-01-08] MEDS: levETIRAcetam 250 MG TABLET PO SCH ×2 (08:34→19:57)
[2021-01-08] MEDS ORDERED: Ipratropium Neb 0.5 MG NEBULIZER IH PRN (08:35)
[2021-01-08] MEDS ORDERED: Albuterol 2.5 MG/3 ML NEBULIZER IH ONE (08:44)
[2021-01-08] MEDS ORDERED: methylPREDNISolone 125 MG/2 ML VIAL IVP ONE (09:08)
[2021-01-08] MEDS ORDERED: *HR* EPINEPHrine 1 MG/10 ML SYRINGE ONE (09:21)
[2021-01-08] MEDS ORDERED: Racepinephrine Neb 0.5 ML VIAL IH ONE ×2 (09:25→09:33)
[2021-01-08] MEDS ORDERED: Ondansetron 4 MG/2 ML VIAL ONE (09:36)
[2021-01-08] MEDS ORDERED: *HR* Propofol 200 MG/20 ML VIAL IVP ONE (09:36)
[2021-01-08] MEDS ORDERED: *HR* FentaNYL (PF) 100 MCG/2 ML VIAL ONE (09:36)
[2021-01-08] MEDS ORDERED: Lidocaine -MPF 4% 5 ML AMPUL ONE ×2 (09:36→09:51)
[2021-01-08] MEDS ORDERED: *HR* Succinylcholine 200 MG/10 ML VIAL IVP ONE (09:36)
[2021-01-08] MEDS ORDERED: Dexamethasone 4 MG/ML VIAL ONE (09:36)
[2021-01-08] MEDS ORDERED: Lidocaine -MPF 2% 2 ML VIAL ONE (09:36)
[2021-01-08] MEDS ORDERED: *HR* Midazolam HCl 5 MG/5 ML VIAL IVP ONE (10:04)
[2021-01-08] MEDS ORDERED: *HR* Midazolam HCl 2 MG/2 ML VIAL ONE (10:04)
[2021-01-08] MEDS ORDERED: Lacri-Lube 3.5 GM TUBE ONE (10:26)
[2021-01-08] MEDS ORDERED: Naloxone 0.4 MG/ML INJ IVP PRN (11:00)
[2021-01-08] MEDS ORDERED: Artificial Tears SOLN 15 ML BOTTLE BOTH EYES PRN (11:02)
[2021-01-08] MEDS: *HR* LORazepam 2 MG/ML VIAL IVP PRN (11:33)
[2021-01-08 11:51] LABS: ABG Base Excess 1 mEq/L (-2 to 3); ABG HCO3 25 mEq/L (21-27); ABG Oxygen Saturation 95 % (95-98); ABG PCO2 38 mmHg (35-45); ABG PH 7.43 pH Units (7.32-7.45); ABG PO2 73 mmHg (85-104); ABG TCO2 26 mEq/L (20-26); Blood Gas Modality ASSIST CONTROL; Blood Gas VT 500 cc
[2021-01-08] MEDS: Artificial Tears SOLN 15 ML BOTTLE BOTH EYES SCH ×4 (11:56→23:51)
[2021-01-08] MEDS: FentaNYL (PF) 1,000 MCG/100 ML IV.SOLN IVC SCH (12:02)
[2021-01-08] MEDS: Midazolam HCl 50 MG/100 ML IV.SOLN IVC SCH (12:02)
[2021-01-08] MEDS ORDERED: Potassium Chloride Elixir 20 MEQ/15 ML UDC GTUBE PRN (18:51)
[2021-01-08] MEDS: Chlorhexidine Rinse 15 ML MOUTHWASH MM SCH (19:57)
[2021-01-08] MEDS ORDERED: 0.9 % Sodium Chloride 1,000 ML IVC ONE (22:34)
[2021-01-09] MEDS: FentaNYL (PF) 1,000 MCG/100 ML IV.SOLN IVC SCH ×2 (00:07→15:30)
[2021-01-09] MEDS: Midazolam HCl 50 MG/100 ML IV.SOLN IVC SCH ×3 (01:33→22:45)
[2021-01-09] MEDS: Ipratropium/Albuterol Neb 3 ML IH SCH ×6 (03:21→23:41)
[2021-01-09] MEDS: Artificial Tears SOLN 15 ML BOTTLE BOTH EYES SCH ×6 (04:00→23:11)
[2021-01-09 04:43] LABS: ABG Base Excess 1 mEq/L (-2 to 3); ABG HCO3 25 mEq/L (21-27); ABG Oxygen Saturation 88 % (95-98); ABG PCO2 40 mmHg (35-45); ABG PH 7.41 pH Units (7.32-7.45); ABG PO2 54 mmHg (85-104); ABG TCO2 27 mEq/L (20-26); Blood Gas Modality AF; Blood Gas VT 500 cc
[2021-01-09 05:16] LABS: INR 1.2; Prothrombin Time 13.5 Seconds (9.4-12.1)
[2021-01-09] MEDS: *HR* Heparin 5,000 UNIT/ML VIAL SQ SCH ×2 (05:29→19:35)
[2021-01-09] MEDS: MethylPREDNISolone 40 MG/ML VIAL IVP SCH ×2 (05:29→19:35)
[2021-01-09 06:04] LABS: Basophils % 0.2 %; Hematocrit 26.5 % (35.3-44.9); Hemoglobin 8.4 g/dL (11.5-15.4); Immature Granulocytes % 0.6 % (0-4); Immature Platelets 4.8 % (1.1-6.1); Lymphocytes # 0.5 K/mcL (0.6-4.6); Lymphocytes % 7.3 %; Mean Corpuscular HGB Conc 31.7 g/dL (31.6-35.5); Mean Corpuscular Hemoglobin 33.9 pg (28.0-33.3); Mean Corpuscular Volume 106.9 fL (83.0-100.0); Mean Platelet Volume 10.9 fL (9.4-12.4); Monocytes # 0.3 K/mcL (0.0-1.3); Monocytes % 4.9 %; Neutrophils # 5.5 K/mcL (1.6-8.9); Platelet Count 103 K/mcL (140-400); Red Blood Count 2.48 M/mcL (3.82-4.97); Red Cell Distribution Width 14.9 % (11.5-14.5); White Blood Count 6.3 K/mcL (4.3-11.1)
[2021-01-09 06:12] LABS: Alanine Aminotransferase 19 Units/L (7-52); Albumin 3.2 g/dL (3.5-5.7); Albumin/Globulin Ratio 1.2 (1.1-2.2); Alkaline Phosphatase 71 Units/L (34-104); Aspartate Amino Transferase 26 Units/L (13-39); BUN/Creatinine Ratio 39 (6-26); Bilirubin,Total 0.4 mg/dL (0.3-1.0); Blood Urea Nitrogen 38 mg/dL (8-23); Calcium 7.8 mg/dL (8.6-10.3); Carbon Dioxide 26 mEq/L (23-29); Chloride 108 mEq/L (98-107); Globulin 2.7 g/dL (2.4-3.5); Glucose 142 mg/dL (70-105); Magnesium 1.4 mg/dL (1.6-2.6); Osmolality,Calculated 303 (280-300); Potassium 3.6 mEq/L (3.5-5.1); Sodium 141 mEq/L (136-145); Total Protein 5.9 g/dL (6.4-8.9); eGFR For African Americans > 60 (> 60); eGFR For Non-African Americans 57 (> 60)
[2021-01-09] MEDS: Calcium Gluconate 1gm/50mL 1 GM/50 ML BAG IVPB SCH ×2 (06:25→10:16)
[2021-01-09] MEDS: Budesonide/Formoterol 160/4.5 1 PUFF INH IH SCH ×2 (07:56→19:42)
[2021-01-09] MEDS: levETIRAcetam 500 MG/5 ML UDC GTUBE SCH ×2 (10:14→20:00)
[2021-01-09] MEDS: Chlorhexidine Rinse 15 ML MOUTHWASH MM SCH ×2 (10:14→20:00)
[2021-01-09] MEDS: Pantoprazole 40 MG VIAL IVP SCH (10:14)
[2021-01-09] MEDS: Famotidine 20 MG TABLET PO SCH ×2 (10:14→20:01)
[2021-01-09] MEDS: Dexmedetomidine HCl 400 MCG/100 ML MLS IVC SCH (12:20)
[2021-01-09] MEDS: Thiamine (B-1) 100 MG TABLET PO SCH ×2 (15:44→20:01)
[2021-01-09 18:17] LABS: BUN/Creatinine Ratio 52 (6-26); Blood Urea Nitrogen 48 mg/dL (8-23); Calcium 8.8 mg/dL (8.6-10.3); Carbon Dioxide 25 mEq/L (23-29); Chloride 107 mEq/L (98-107); Glucose 117 mg/dL (70-105); Osmolality,Calculated 302 (280-300); Potassium 4.3 mEq/L (3.5-5.1); Sodium 139 mEq/L (136-145); eGFR For African Americans > 60 (> 60); eGFR For Non-African Americans > 60 (> 60)
[2021-01-10] MEDS: Ipratropium/Albuterol Neb 3 ML IH SCH ×6 (03:08→23:29)
[2021-01-10] MEDS: Artificial Tears SOLN 15 ML BOTTLE BOTH EYES SCH ×6 (03:19→23:42)
[2021-01-10 04:05] LABS: Hematocrit 29.2 % (35.3-44.9); Hemoglobin 9.1 g/dL (11.5-15.4); Mean Corpuscular HGB Conc 31.2 g/dL (31.6-35.5); Mean Corpuscular Hemoglobin 33.7 pg (28.0-33.3); Mean Corpuscular Volume 108.1 fL (83.0-100.0); Mean Platelet Volume 11.4 fL (9.4-12.4); Platelet Count 116 K/mcL (140-400); Red Cell Distribution Width 15.5 % (11.5-14.5)
[2021-01-10 04:20] LABS: VBG Ionized Calcium 1.08 mmol/L (1.15-1.35)
[2021-01-10 04:27] LABS: BUN/Creatinine Ratio 65 (6-26); Blood Urea Nitrogen 58 mg/dL (8-23); Calcium 8.6 mg/dL (8.6-10.3); Carbon Dioxide 24 mEq/L (23-29); Chloride 108 mEq/L (98-107); Glucose 124 mg/dL (70-105); Magnesium 2.3 mg/dL (1.6-2.6); Osmolality,Calculated 304 (280-300); Phosphorous 3.1 mg/dL (2.7-4.5); Potassium 4.6 mEq/L (3.5-5.1); Sodium 138 mEq/L (136-145); eGFR For African Americans > 60 (> 60); eGFR For Non-African Americans > 60 (> 60)
[2021-01-10 04:44] LABS: ABG Base Excess 1 mEq/L (-2 to 3); ABG HCO3 25 mEq/L (21-27); ABG Oxygen Saturation 93 % (95-98); ABG PCO2 37 mmHg (35-45); ABG PH 7.44 pH Units (7.32-7.45); ABG PO2 64 mmHg (85-104); ABG TCO2 26 mEq/L (20-26); Blood Gas Modality AF; Blood Gas VT 500 cc
[2021-01-10] MEDS: FentaNYL (PF) 1,000 MCG/100 ML IV.SOLN IVC SCH ×2 (04:46→17:39)
[2021-01-10] MEDS: *HR* Heparin 5,000 UNIT/ML VIAL SQ SCH ×2 (05:11→17:01)
[2021-01-10] MEDS: MethylPREDNISolone 40 MG/ML VIAL IVP SCH ×2 (05:11→17:00)
[2021-01-10] MEDS: Pantoprazole 40 MG VIAL IVP SCH (07:26)
[2021-01-10] MEDS: levETIRAcetam 500 MG/5 ML UDC GTUBE SCH ×2 (07:26→19:22)
[2021-01-10] MEDS: Thiamine (B-1) 100 MG TABLET PO SCH ×3 (07:27→19:22)
[2021-01-10] MEDS: Chlorhexidine Rinse 15 ML MOUTHWASH MM SCH ×2 (07:27→19:22)
[2021-01-10] MEDS: Famotidine 20 MG TABLET PO SCH ×2 (07:27→19:22)
[2021-01-10] MEDS: Dexmedetomidine HCl 400 MCG/100 ML MLS IVC SCH (07:33)
[2021-01-10] MEDS: Budesonide/Formoterol 160/4.5 1 PUFF INH IH SCH ×2 (08:03→19:52)
[2021-01-10] MEDS: Midazolam HCl 50 MG/100 ML IV.SOLN IVC SCH ×2 (08:19→17:34)
[2021-01-11] MEDS: Midazolam HCl 50 MG/100 ML IV.SOLN IVC SCH (01:54)
[2021-01-11] MEDS: Artificial Tears SOLN 15 ML BOTTLE BOTH EYES SCH ×5 (03:25→19:57)
[2021-01-11] MEDS: Ipratropium/Albuterol Neb 3 ML IH SCH ×6 (04:19→22:47)
[2021-01-11 04:40] LABS: ABG Base Excess 1 mEq/L (-2 to 3); ABG HCO3 25 mEq/L (21-27); ABG Oxygen Saturation 94 % (95-98); ABG PCO2 34 mmHg (35-45); ABG PH 7.47 pH Units (7.32-7.45); ABG PO2 65 mmHg (85-104); ABG TCO2 26 mEq/L (20-26); Blood Gas VT 500 cc
[2021-01-11] MEDS: MethylPREDNISolone 40 MG/ML VIAL IVP SCH ×2 (05:00→17:22)
[2021-01-11] MEDS: *HR* Heparin 5,000 UNIT/ML VIAL SQ SCH ×2 (05:01→17:22)
[2021-01-11 06:20] LABS: Hematocrit 27.8 % (35.3-44.9); Hemoglobin 8.6 g/dL (11.5-15.4); Mean Corpuscular HGB Conc 30.9 g/dL (31.6-35.5); Mean Corpuscular Volume 109.9 fL (83.0-100.0); Mean Platelet Volume 10.9 fL (9.4-12.4); Platelet Count 110 K/mcL (140-400); Red Blood Count 2.53 M/mcL (3.82-4.97); Red Cell Distribution Width 15.6 % (11.5-14.5); White Blood Count 4.9 K/mcL (4.3-11.1)
[2021-01-11 06:40] LABS: BUN/Creatinine Ratio 64 (6-26); Blood Urea Nitrogen 58 mg/dL (8-23); Calcium 8.7 mg/dL (8.6-10.3); Carbon Dioxide 23 mEq/L (23-29); Chloride 112 mEq/L (98-107); Glucose 97 mg/dL (70-105); Magnesium 2.1 mg/dL (1.6-2.6); Osmolality,Calculated 310 (280-300); Phosphorous 3.3 mg/dL (2.7-4.5); Potassium 3.9 mEq/L (3.5-5.1); Sodium 142 mEq/L (136-145); eGFR For African Americans > 60 (> 60); eGFR For Non-African Americans > 60 (> 60)
[2021-01-11] MEDS: Budesonide/Formoterol 160/4.5 1 PUFF INH IH SCH ×2 (07:23→19:46)
[2021-01-11] MEDS: levETIRAcetam 500 MG/5 ML UDC GTUBE SCH ×2 (08:16→19:56)
[2021-01-11] MEDS: Chlorhexidine Rinse 15 ML MOUTHWASH MM SCH ×2 (08:16→19:56)
[2021-01-11] MEDS: Pantoprazole 40 MG VIAL IVP SCH (08:16)
[2021-01-11] MEDS: Famotidine 20 MG TABLET PO SCH ×2 (08:17→19:56)
[2021-01-11] MEDS: Dexmedetomidine HCl 400 MCG/100 ML MLS IVC SCH (08:17)
[2021-01-11] MEDS: Thiamine (B-1) 100 MG TABLET PO SCH ×3 (08:17→19:56)
[2021-01-11] MEDS: FentaNYL (PF) 1,000 MCG/100 ML IV.SOLN IVC SCH ×2 (08:33→20:30)
[2021-01-12] MEDS: Artificial Tears SOLN 15 ML BOTTLE BOTH EYES SCH ×7 (00:10→23:04)
[2021-01-12 03:55] LABS: Hematocrit 29.4 % (35.3-44.9); Hemoglobin 9.1 g/dL (11.5-15.4); Mean Corpuscular Hemoglobin 33.7 pg (28.0-33.3); Mean Corpuscular Volume 108.9 fL (83.0-100.0); Mean Platelet Volume 10.9 fL (9.4-12.4); Platelet Count 116 K/mcL (140-400); Red Cell Distribution Width 15.5 % (11.5-14.5); White Blood Count 5.4 K/mcL (4.3-11.1)
[2021-01-12] MEDS: FentaNYL (PF) 1,000 MCG/100 ML IV.SOLN IVC SCH ×2 (04:00→11:37)
[2021-01-12] MEDS: Ipratropium/Albuterol Neb 3 ML IH SCH ×5 (04:03→19:40)
[2021-01-12 04:15] LABS: BUN/Creatinine Ratio 63 (6-26); Blood Urea Nitrogen 52 mg/dL (8-23); Calcium 8.7 mg/dL (8.6-10.3); Carbon Dioxide 21 mEq/L (23-29); Chloride 109 mEq/L (98-107); Glucose 111 mg/dL (70-105); Magnesium 2.2 mg/dL (1.6-2.6); Osmolality,Calculated 307 (280-300); Phosphorous 4.2 mg/dL (2.7-4.5); Sodium 141 mEq/L (136-145); eGFR For African Americans > 60 (> 60); eGFR For Non-African Americans > 60 (> 60)
[2021-01-12 04:54] LABS: VBG Ionized Calcium 1.16 mmol/L (1.15-1.35)
[2021-01-12 04:55] LABS: ABG Base Excess 0 mEq/L (-2 to 3); ABG HCO3 24 mEq/L (21-27); ABG Oxygen Saturation 97 % (95-98); ABG PCO2 36 mmHg (35-45); ABG PH 7.43 pH Units (7.32-7.45); ABG PO2 90 mmHg (85-104); ABG TCO2 25 mEq/L (20-26); Blood Gas VT 500 cc
[2021-01-12] MEDS: *HR* Heparin 5,000 UNIT/ML VIAL SQ SCH ×2 (06:02→17:08)
[2021-01-12] MEDS: MethylPREDNISolone 40 MG/ML VIAL IVP SCH ×2 (06:02→17:08)
[2021-01-12] MEDS: Budesonide/Formoterol 160/4.5 1 PUFF INH IH SCH ×2 (07:14→19:40)
[2021-01-12] MEDS: Dexmedetomidine HCl 400 MCG/100 ML MLS IVC SCH ×2 (07:59→23:04)
[2021-01-12] MEDS: Famotidine 20 MG TABLET PO SCH ×2 (08:04→19:33)
[2021-01-12] MEDS: Pantoprazole 40 MG VIAL IVP SCH (08:04)
[2021-01-12] MEDS: Thiamine (B-1) 100 MG TABLET PO SCH ×3 (08:04→19:32)
[2021-01-12] MEDS: levETIRAcetam 500 MG/5 ML UDC GTUBE SCH ×2 (08:04→19:32)
[2021-01-12] MEDS: Chlorhexidine Rinse 15 ML MOUTHWASH MM SCH ×2 (08:04→19:33)
[2021-01-12] MEDS: Ringers Solution, Lactated 1,000 ML IVC SCH ×2 (10:24→20:13)
[2021-01-12] MEDS: FentaNYL (PF) 2,500 MCG/50 ML IV.SOLN IVC SCH (17:03)
[2021-01-13] MEDS: Ipratropium/Albuterol Neb 3 ML IH SCH ×7 (00:17→23:05)
[2021-01-13] MEDS: Artificial Tears SOLN 15 ML BOTTLE BOTH EYES SCH ×6 (03:16→23:53)
[2021-01-13 05:06] LABS: ABG Base Excess 1 mEq/L (-2 to 3); ABG HCO3 26 mEq/L (21-27); ABG Oxygen Saturation 98 % (95-98); ABG PCO2 44 mmHg (35-45); ABG PH 7.39 pH Units (7.32-7.45); ABG PO2 102 mmHg (85-104); ABG TCO2 28 mEq/L (20-26); Blood Gas Modality ASSIST CONTROL; Blood Gas VT 450 cc
[2021-01-13 07:23] LABS: Hematocrit 30.8 % (35.3-44.9); Hemoglobin 9.6 g/dL (11.5-15.4); Mean Corpuscular HGB Conc 31.2 g/dL (31.6-35.5); Mean Corpuscular Hemoglobin 34.3 pg (28.0-33.3); Platelet Count 119 K/mcL (140-400); White Blood Count 7.2 K/mcL (4.3-11.1)
[2021-01-13] MEDS: Ringers Solution, Lactated 1,000 ML IVC SCH (07:30)
[2021-01-13] MEDS: MethylPREDNISolone 40 MG/ML VIAL IVP SCH ×2 (07:30→18:14)
[2021-01-13] MEDS: *HR* Heparin 5,000 UNIT/ML VIAL SQ SCH ×2 (07:30→18:14)
[2021-01-13] MEDS: FentaNYL (PF) 2,500 MCG/50 ML IV.SOLN IVC SCH (07:31)
[2021-01-13] MEDS: Budesonide/Formoterol 160/4.5 1 PUFF INH IH SCH ×2 (07:33→20:11)
[2021-01-13] MEDS: Pantoprazole 40 MG VIAL IVP SCH (07:36)
[2021-01-13] MEDS: Chlorhexidine Rinse 15 ML MOUTHWASH MM SCH ×2 (07:37→19:22)
[2021-01-13] MEDS: levETIRAcetam 500 MG/5 ML UDC GTUBE SCH ×2 (07:37→19:30)
[2021-01-13] MEDS: Famotidine 20 MG TABLET PO SCH ×2 (07:37→19:31)
[2021-01-13] MEDS: Thiamine (B-1) 100 MG TABLET PO SCH ×4 (07:37→21:02)
[2021-01-13 07:55] LABS: BUN/Creatinine Ratio 61 (6-26); Blood Urea Nitrogen 42 mg/dL (8-23); Carbon Dioxide 24 mEq/L (23-29); Chloride 107 mEq/L (98-107); Glucose 94 mg/dL (70-105); Magnesium 1.8 mg/dL (1.6-2.6); Osmolality,Calculated 298 (280-300); Phosphorous 4.1 mg/dL (2.7-4.5); Sodium 139 mEq/L (136-145); eGFR For African Americans > 60 (> 60); eGFR For Non-African Americans > 60 (> 60)
[2021-01-13] MEDS: Dexmedetomidine HCl 400 MCG/100 ML MLS IVC SCH (11:11)
[2021-01-13] MEDS: Famotidine 20 MG/2 ML VIAL IVP SCH (22:18)
[2021-01-13] MEDS: levETIRAcetam 250 MG in 0.9 % Sodium Chloride 100 ML IVPB SCH (22:18)
[2021-01-14] MEDS: Artificial Tears SOLN 15 ML BOTTLE BOTH EYES SCH ×2 (03:09→08:32)
[2021-01-14] MEDS: Ipratropium/Albuterol Neb 3 ML IH SCH ×6 (03:42→22:59)
[2021-01-14] MEDS: MethylPREDNISolone 40 MG/ML VIAL IVP SCH (04:51)
[2021-01-14] MEDS: Famotidine 20 MG/2 ML VIAL IVP SCH ×2 (04:51→17:42)
[2021-01-14] MEDS: *HR* Heparin 5,000 UNIT/ML VIAL SQ SCH ×2 (04:51→17:42)
[2021-01-14 05:33] LABS: Hematocrit 29.4 % (35.3-44.9); Hemoglobin 9.5 g/dL (11.5-15.4); Immature Platelets 7.6 % (1.1-6.1); Mean Corpuscular HGB Conc 32.3 g/dL (31.6-35.5); Mean Corpuscular Hemoglobin 33.7 pg (28.0-33.3); Mean Corpuscular Volume 104.3 fL (83.0-100.0); Mean Platelet Volume 10.8 fL (9.4-12.4); Red Blood Count 2.82 M/mcL (3.82-4.97); Red Cell Distribution Width 14.5 % (11.5-14.5); White Blood Count 6.4 K/mcL (4.3-11.1)
[2021-01-14 05:55] LABS: BUN/Creatinine Ratio 43 (6-26); Blood Urea Nitrogen 30 mg/dL (8-23); Carbon Dioxide 27 mEq/L (23-29); Chloride 105 mEq/L (98-107); Glucose 93 mg/dL (70-105); Magnesium 1.6 mg/dL (1.6-2.6); Osmolality,Calculated 294 (280-300); Phosphorous 2.7 mg/dL (2.7-4.5); Potassium 3.7 mEq/L (3.5-5.1); Sodium 139 mEq/L (136-145); eGFR For African Americans > 60 (> 60); eGFR For Non-African Americans > 60 (> 60)
[2021-01-14] MEDS: Budesonide/Formoterol 160/4.5 1 PUFF INH IH SCH ×2 (07:44→20:07)
[2021-01-14] MEDS: Chlorhexidine Rinse 15 ML MOUTHWASH MM SCH (08:31)
[2021-01-14] MEDS: Pantoprazole 40 MG VIAL IVP SCH (08:31)
[2021-01-14] MEDS: levETIRAcetam 250 MG in 0.9 % Sodium Chloride 100 ML IVPB SCH ×2 (08:32→20:08)
[2021-01-14] MEDS: Thiamine (B-1) 100 MG TABLET PO SCH ×2 (08:32→08:40)
[2021-01-14] MEDS: Midazolam HCl 50 MG/100 ML IV.SOLN IVC SCH (08:41)
[2021-01-14] MEDS ORDERED: *HR* Metoprolol 5 MG/5 ML VIAL IVP PRN ×2 (09:38→13:07)
[2021-01-14] MEDS ORDERED: *HR* LORazepam 2 MG/ML VIAL IVP PRN ×2 (09:38→13:07)
[2021-01-14] MEDS ORDERED: Albuterol 2.5 MG/3 ML NEBULIZER IH PRN (13:07)
[2021-01-14] MEDS ORDERED: Ipratropium Neb 0.5 MG NEBULIZER IH PRN (13:07)
[2021-01-14] MEDS ORDERED: Naloxone 0.4 MG/ML INJ IVP PRN (13:07)
[2021-01-14] MEDS ORDERED: Acetaminophen 325 MG TABLET PO PRN (13:07)
[2021-01-14] MEDS: Thiamine (B-1) 100 MG, Folic Acid 1 MG, MVI, adult with vitamin K 10 ML in 0.9 % Sodi... IVPB SCH (17:45)
[2021-01-14] MEDS ORDERED: Thiamine (B-1) 100 MG, Folic Acid 1 MG, MVI, adult with vitamin K 10 ML in 0.9 % Sodi... IVPB SCH (18:00)
[2021-01-15] MEDS: Ipratropium/Albuterol Neb 3 ML IH SCH ×2 (04:20→07:25)
[2021-01-15 04:50] LABS: Mean Platelet Volume 11.2 fL (9.4-12.4); Red Cell Distribution Width 14.6 % (11.5-14.5)
[2021-01-15 04:52] LABS: Hemoglobin 10.1 g/dL (11.5-15.4); Immature Platelets 7.9 % (1.1-6.1); Mean Corpuscular HGB Conc 31.6 g/dL (31.6-35.5); Mean Corpuscular Hemoglobin 33.4 pg (28.0-33.3); Red Blood Count 3.02 M/mcL (3.82-4.97); White Blood Count 7.2 K/mcL (4.3-11.1)
[2021-01-15] MEDS: Famotidine 20 MG/2 ML VIAL IVP SCH ×2 (05:46→17:37)
[2021-01-15] MEDS: *HR* Heparin 5,000 UNIT/ML VIAL SQ SCH ×2 (06:03→17:37)
[2021-01-15 06:48] LABS: BUN/Creatinine Ratio 31 (6-26); Blood Urea Nitrogen 22 mg/dL (8-23); Calcium 8.8 mg/dL (8.6-10.3); Carbon Dioxide 26 mEq/L (23-29); Chloride 104 mEq/L (98-107); Glucose 96 mg/dL (70-105); Magnesium 1.6 mg/dL (1.6-2.6); Osmolality,Calculated 291 (280-300); Potassium 3.2 mEq/L (3.5-5.1); Sodium 139 mEq/L (136-145); eGFR For African Americans > 60 (> 60); eGFR For Non-African Americans > 60 (> 60)
[2021-01-15] MEDS: Budesonide/Formoterol 160/4.5 1 PUFF INH IH SCH ×2 (07:27→21:02)
[2021-01-15] MEDS: levETIRAcetam 250 MG in 0.9 % Sodium Chloride 100 ML IVPB SCH ×2 (08:22→21:45)
[2021-01-15] MEDS: Pantoprazole 40 MG VIAL IVP SCH (08:23)
[2021-01-15] MEDS: MethylPREDNISolone 40 MG/ML VIAL IVP SCH (08:23)
[2021-01-15] MEDS ORDERED: MethylPREDNISolone 40 MG/ML VIAL IVP SCH (09:00)
[2021-01-15] MEDS: amLODIPine 5 MG TABLET PO SCH (11:58)
[2021-01-15] MEDS ORDERED: E-Z-PAQUE (BARIUM SULF) SUSP 1 BOTTLE PO ONE (13:53)
[2021-01-15] MEDS ORDERED: E-Z-HD (BARIUM SULF) SUSPENSION PO ONE (13:53)
[2021-01-15] MEDS: Thiamine (B-1) 100 MG, Folic Acid 1 MG, MVI, adult with vitamin K 10 ML in 0.9 % Sodi... IVPB SCH (17:38)
[2021-01-16] MEDS: Famotidine 20 MG/2 ML VIAL IVP SCH (06:20)
[2021-01-16] MEDS: *HR* Heparin 5,000 UNIT/ML VIAL SQ SCH ×2 (06:21→17:35)
[2021-01-16 07:07] LABS: Hematocrit 34.4 % (35.3-44.9); Mean Corpuscular Volume 103.3 fL (83.0-100.0); Mean Platelet Volume 11.1 fL (9.4-12.4); Platelet Count 111 K/mcL (140-400); Red Blood Count 3.33 M/mcL (3.82-4.97); Red Cell Distribution Width 14.2 % (11.5-14.5); White Blood Count 8.3 K/mcL (4.3-11.1)
[2021-01-16 07:19] LABS: BUN/Creatinine Ratio 25 (6-26); Blood Urea Nitrogen 19 mg/dL (8-23); Calcium 8.5 mg/dL (8.6-10.3); Carbon Dioxide 25 mEq/L (23-29); Chloride 105 mEq/L (98-107); Glucose 93 mg/dL (70-105); Magnesium 1.6 mg/dL (1.6-2.6); Osmolality,Calculated 288 (280-300); Phosphorous 2.8 mg/dL (2.7-4.5); Potassium 3.3 mEq/L (3.5-5.1); Sodium 138 mEq/L (136-145); eGFR For African Americans > 60 (> 60); eGFR For Non-African Americans > 60 (> 60)
[2021-01-16] MEDS: Budesonide/Formoterol 160/4.5 1 PUFF INH IH SCH ×2 (07:51→20:02)
[2021-01-16] MEDS: Pantoprazole 40 MG VIAL IVP SCH (08:32)
[2021-01-16] MEDS: MethylPREDNISolone 40 MG/ML VIAL IVP SCH (08:33)
[2021-01-16] MEDS: amLODIPine 5 MG TABLET PO SCH (08:33)
[2021-01-16] MEDS: levETIRAcetam 250 MG in 0.9 % Sodium Chloride 100 ML IVPB SCH (08:42)
[2021-01-16] MEDS: Thiamine (B-1) 100 MG, Folic Acid 1 MG, MVI, adult with vitamin K 10 ML in 0.9 % Sodi... IVPB SCH (17:35)
[2021-01-16] MEDS: levETIRAcetam 500 MG/5 ML UDC PO SCH (20:21)
[2021-01-17] MEDS: *HR* Heparin 5,000 UNIT/ML VIAL SQ SCH (05:33)
[2021-01-17] MEDS: Budesonide/Formoterol 160/4.5 1 PUFF INH IH SCH (07:45)
[2021-01-17] MEDS: levETIRAcetam 500 MG/5 ML UDC PO SCH (08:29)
[2021-01-17] MEDS: amLODIPine 5 MG TABLET PO SCH (08:29)
[2021-01-17] MEDS ORDERED: predniSONE 20 MG TABLET PO SCH (09:00)
[2021-01-17 10:04] VITALS: BP 154/88
[2021-01-17 11:23] LABS: Adenovirus Not Detected (Not Detect); Bordetella Pertussis Not Detected (Not Detect); Chlamydophila pneumoniae Not Detected (Not Detect); Coronavirus 229E Not Detected (Not Detect); Coronavirus HKU1 Not Detected (Not Detect); Coronavirus NL63 Not Detected (Not Detect); Coronavirus OC43 Not Detected (Not Detect); Human Metapneumovirus Not Detected (Not Detect); Human Rhinovirus/Enterovirus Not Detected (Not Detect); Influenza A Subtype 2009 H1 Not Detected (Not Detect); Influenza B Not Detected (Not Detect); Mycoplasma pneumoniae Not Detected (Not Detect); Parainfluenza Virus 1 Not Detected (Not Detect); Parainfluenza Virus 2 Not Detected (Not Detect); Parainfluenza Virus 3 Not Detected (Not Detect); Parainfluenza Virus 4 Not Detected (Not Detect); Respiratory Syncytial Virus Not Detected (Not Detect); SARS-CoV-2 Not Detected (Not Detect)
== END 2021-01-17 14:34 | DRG 917 ==
LOC: EMEROOARM 13:07 → SUATTDRO 16:12 → ICNU 16:12 → 3BNU 01-06 12:09 → 2NNU 01-06 20:21 → ICNU 01-08 10:39 → 3ANU 01-14 21:50
PROVIDERS: ADMIT Pediatrics; ATTEND Student in an Organized Health Care Education/Training Program

== ENCOUNTER 2021-07-15 23:08 | Inpatient (IN) ==
[2021-07-15] MEDS ORDERED: 0.9 % Sodium Chloride 1,000 ML IVC ONE (23:55)
[2021-07-16 01:54] LABS: Basophils # 0.1 K/mcL (0.0-0.2); Basophils % 0.6 %; Eosinophils % 0.3 %; Hematocrit 39.9 % (35.3-44.9); Hemoglobin 13.4 g/dL (11.5-15.4); Immature Granulocytes % 0.5 % (0-4); Lymphocytes # 1.6 K/mcL (0.6-4.6); Lymphocytes % 14.1 %; Mean Corpuscular HGB Conc 33.6 g/dL (31.6-35.5); Mean Corpuscular Hemoglobin 30.9 pg (28.0-33.3); Mean Corpuscular Volume 91.9 fL (83.0-100.0); Mean Platelet Volume 11.6 fL (9.4-12.4); Monocytes # 0.4 K/mcL (0.0-1.3); Monocytes % 3.4 %; Neutrophils # 9.1 K/mcL (1.6-8.9); Platelet Count 181 K/mcL (140-400); Red Blood Count 4.34 M/mcL (3.82-4.97); Red Cell Distribution Width 15.6 % (11.5-14.5); Segmented Neutrophils % 81.1 %; White Blood Count 11.2 K/mcL (4.3-11.1)
[2021-07-16 02:19] LABS: Bacteria,Urine Few per hpf (None-Few); Bilirubin,Urine Negative (Negative); Blood,Urine Negative (Negative); Clarity,Urine Clear (Clear); Color,Urine Light-Yellow (Yellow); Glucose,Urine (UA) Normal (Normal); Hyaline Casts,Urine Few per lpf (None Seen); Ketones,Urine Negative (Negative); Leukocyte Esterase,Urine Moderate (Negative); Mucus,Urine Few per lpf (None-Few); Nitrite,Urine Negative (Negative); Protein,Urine Negative (Neg-Trace); Specific Gravity,Urine 1.013 (1.010-1.025); Squamous Epithelial Cell,Urine Few per hpf (None-Few); Urobilinogen,Urine Normal (Normal); WBC,Urine 15-30 per hpf (0-3)
[2021-07-16 02:26] LABS: Amphetamine Screen,Urine Negative ng/mL (Cutoff=1000); Barbiturate Screen,Urine Negative ng/mL (Cutoff=200); Benzodiazepines Screen,Urine Positive ng/mL (Cutoff=200); Cannabinoid Screen,Urine Negative ng/mL (Cutoff = 50); Cocaine Screen,Urine Negative ng/mL (Cutoff= 300); Opiate Screen,Urine Negative ng/mL (Cutoff=300); Phencyclidine Screen,Urine Negative ng/mL (Cutoff=25)
[2021-07-16 03:57] LABS: Acetaminophen < 10 mcg/mL (10-20); BUN/Creatinine Ratio 18 (6-26); Blood Urea Nitrogen 28 mg/dL (8-23); Calcium 9.1 mg/dL (8.6-10.3); Carbon Dioxide 21 mEq/L (23-29); Chloride 93 mEq/L (98-107); Ethanol 10 mg/dL (Less than 10); Glucose 98 mg/dL (70-105); Osmolality,Calculated 263 (280-300); Potassium 6.3 mEq/L (3.5-5.1); Salicylate < 2.5 mg/dL (15.0-30.0); Sodium 124 mEq/L (136-145); eGFR For African Americans 39 (> 60); eGFR For Non-African Americans 32 (> 60)
[2021-07-16 04:00] LABS: Troponin I < 0.03 ng/mL (< 0.04)
[2021-07-16] MEDS ORDERED: Calcium Gluconate 1gm/50mL 1 GM/50 ML BAG IVPB ONE (04:31)
[2021-07-16] MEDS ORDERED: Insulin Human Regular 5 UNIT in 0.9 % Sodium Chloride 10 ML IV ONE (04:32)
[2021-07-16] MEDS ORDERED: Albuterol 2.5 MG/3 ML NEBULIZER IH ONE (04:32)
[2021-07-16] MEDS ORDERED: *HR* Dextrose 50 % in Water (Syg) 50 ML SYRINGE IVP ONE (04:32)
[2021-07-16] MEDS ORDERED: cefTRIAXone 1,000 MG in Water for inj. (sterile) 10 ML IVP ONE (04:33)
[2021-07-16] MEDS ORDERED: Naloxone 0.4 MG/ML INJ IVP PRN (04:42)
[2021-07-16] MEDS: 0.9 % Sodium Chloride 1,000 ML IVC SCH ×2 (06:02→18:24)
[2021-07-16] MEDS: *HR* Heparin 5,000 UNIT/ML VIAL SQ SCH ×2 (06:58→18:30)
[2021-07-16 10:39] LABS: Calcium 9.3 mg/dL (8.6-10.3); Potassium 5.5 mEq/L (3.5-5.1)
[2021-07-16 13:10] LABS: Sodium, Urine 61.9 mEq/L
[2021-07-16] MEDS: levETIRAcetam 500 MG/5 ML UDC PO SCH ×2 (15:54→21:21)
[2021-07-16 23:11] LABS: Calcium 9.4 mg/dL (8.6-10.3); Potassium 4.8 mEq/L (3.5-5.1)
[2021-07-16] MEDS: Melatonin 3 MG TABLET PO PRN (23:59)
[2021-07-17] MEDS: *HR* Heparin 5,000 UNIT/ML VIAL SQ SCH ×2 (06:25→17:01)
[2021-07-17] MEDS: levETIRAcetam 500 MG/5 ML UDC PO SCH ×2 (08:49→20:28)
[2021-07-17 09:00] LABS: Calcium 9.4 mg/dL (8.6-10.3); Potassium 5.6 mEq/L (3.5-5.1)
[2021-07-17] MEDS ORDERED: Insulin Human Regular 10 UNIT in 0.9 % Sodium Chloride 10 ML IV ONE (09:20)
[2021-07-17] MEDS ORDERED: *HR* Dextrose 50 % in Water (Syg) 50 ML SYRINGE IVP ONE ×2 (09:20→13:30)
[2021-07-17] MEDS ORDERED: SODIUM ZIRCONIUM CYCLOSILICATE 5 GM POWD.PACK PO ONE ×2 (09:21→13:30)
[2021-07-17] MEDS: diazePAM 5 MG TABLET PO PRN (20:28)
[2021-07-18] MEDS: Melatonin 3 MG TABLET PO PRN ×2 (01:44→21:08)
[2021-07-18 02:00] LABS: Potassium 4.5 mEq/L (3.5-5.1)
[2021-07-18] MEDS: *HR* Heparin 5,000 UNIT/ML VIAL SQ SCH ×2 (05:29→17:56)
[2021-07-18] MEDS: levETIRAcetam 500 MG/5 ML UDC PO SCH ×2 (08:46→21:08)
[2021-07-18] MEDS ORDERED: 0.9 % Sodium Chloride 1,000 ML IVC ONE (09:40)
[2021-07-18] MEDS: diazePAM 5 MG TABLET PO PRN ×2 (10:45→14:32)
[2021-07-18 19:50] LABS: Potassium 4.5 mEq/L (3.5-5.1)
[2021-07-19 03:24] LABS: Albumin 4.1 g/dL (3.5-5.7); Albumin/Globulin Ratio 1.5 (1.1-2.2); Bilirubin,Direct 0.1 mg/dL (0.0-0.2); Bilirubin,Indirect 0.5 mg/dL (0.0-1.0); Bilirubin,Total 0.6 mg/dL (0.3-1.0); Globulin 2.8 g/dL (2.4-3.5); Total Protein 6.9 g/dL (6.4-8.9); Uric Acid 7.2 mg/dL (2.3-7.6)
[2021-07-19 03:38] LABS: Calcium 9.1 mg/dL (8.6-10.3); Potassium 4.2 mEq/L (3.5-5.1)
[2021-07-19] MEDS: diazePAM 5 MG TABLET PO PRN ×2 (03:51→12:10)
[2021-07-19] MEDS: *HR* Heparin 5,000 UNIT/ML VIAL SQ SCH (06:13)
[2021-07-19 10:22] VITALS: BP 102/69; PULSE 111; TEMP 98.1; O2SAT 100
[2021-07-19] MEDS: levETIRAcetam 500 MG/5 ML UDC PO SCH (10:29)
== END 2021-07-19 13:25 | DRG 918 ==
LOC: 3ANU 23:08 → EMEROOARM 23:08 → SUATTDRO 07-16 04:48 → 3ANU 07-16 05:45
PROVIDERS: ADMIT Student in an Organized Health Care Education/Training Program; ATTEND Internal Medicine

== ENCOUNTER 2021-11-26 08:58 | Inpatient (IN) ==
[2021-11-26 10:15] LABS: Basophils # 0.1 K/mcL (0.0-0.2); Basophils % 0.9 %; Eosinophils # 0.2 K/mcL (0.0-0.6); Eosinophils % 2.5 %; Hematocrit 34.8 % (35.3-44.9); Hemoglobin 11.9 g/dL (11.5-15.4); Immature Granulocytes % 0.3 % (0-4); Lymphocytes # 2.2 K/mcL (0.6-4.6); Lymphocytes % 33.2 %; Mean Corpuscular HGB Conc 34.2 g/dL (31.6-35.5); Mean Corpuscular Hemoglobin 32.3 pg (28.0-33.3); Mean Corpuscular Volume 94.6 fL (83.0-100.0); Mean Platelet Volume 10.6 fL (9.4-12.4); Monocytes # 0.5 K/mcL (0.0-1.3); Monocytes % 7.1 %; Neutrophils # 3.8 K/mcL (1.6-8.9); Platelet Count 167 K/mcL (140-400); Red Blood Count 3.68 M/mcL (3.82-4.97); Red Cell Distribution Width 13.7 % (11.5-14.5); White Blood Count 6.8 K/mcL (4.3-11.1)
[2021-11-26 10:37] LABS: Acetaminophen < 10 mcg/mL (10-20); Alanine Aminotransferase 39 Units/L (7-52); Albumin 4.1 g/dL (3.5-5.7); Albumin/Globulin Ratio 1.4 (1.1-2.2); Alkaline Phosphatase 110 Units/L (34-104); Aspartate Amino Transferase 81 Units/L (13-39); BUN/Creatinine Ratio 21 (6-26); Bilirubin,Total 0.3 mg/dL (0.3-1.0); Blood Urea Nitrogen 22 mg/dL (8-23); Calcium 8.4 mg/dL (8.6-10.3); Carbon Dioxide 20 mEq/L (23-29); Chloride 105 mEq/L (98-107); Ethanol 315 mg/dL (Less than 10); Glucose 111 mg/dL (70-105); Osmolality,Calculated 288 (280-300); Potassium 4.4 mEq/L (3.5-5.1); Salicylate 5.4 mg/dL (15.0-30.0); Sodium 137 mEq/L (136-145); Total Protein 7.1 g/dL (6.4-8.9); eGFR For African Americans > 60 (> 60); eGFR For Non-African Americans 53 (> 60)
[2021-11-26 10:50] LABS: Bilirubin,Urine Negative (Negative); Blood,Urine Negative (Negative); Clarity,Urine Clear (Clear); Color,Urine Yellow (Yellow); Glucose,Urine (UA) Normal (Normal); Ketones,Urine Negative (Negative); Leukocyte Esterase,Urine Negative (Negative); Nitrite,Urine Negative (Negative); Protein,Urine Negative (Neg-Trace); Urobilinogen,Urine Normal (Normal)
[2021-11-26 11:13] LABS: Amphetamine Screen,Urine Negative ng/mL (Cutoff=1000); Barbiturate Screen,Urine Negative ng/mL (Cutoff=200)
[2021-11-26 11:14] LABS: Benzodiazepines Screen,Urine Positive ng/mL (Cutoff=300); Cannabinoid Screen,Urine Negative ng/mL (Cutoff = 50); Cocaine Screen,Urine Negative ng/mL (Cutoff= 300); Opiate Screen,Urine Negative ng/mL (Cutoff=300); Phencyclidine Screen,Urine Negative ng/mL (Cutoff=25)
[2021-11-26 12:14] LABS: Influenza A PCR Negative (Negative); Influenza B PCR Negative (Negative); Resp. Syncytial Virus PCR Negative (Negative)
[2021-11-26 12:17] LABS: SARS-CoV-2 by PCR (In House) Negative (Negative)
[2021-11-26] MEDS ORDERED: Ondansetron ODT 4 MG TAB.RAPDIS SL ONE (15:33)
[2021-11-26] MEDS: levETIRAcetam 250 MG TABLET PO SCH (19:06)
[2021-11-26] MEDS: Lisinopril-HCTZ 20-12.5mg TABLET PO SCH (19:39)
[2021-11-26] MEDS ORDERED: Naloxone 0.4 MG/ML INJ IVP PRN (20:27)
[2021-11-26] MEDS ORDERED: Melatonin 3 MG TABLET PO PRN (20:27)
[2021-11-26] MEDS ORDERED: Acetaminophen 325 MG TABLET PO PRN (20:27)
[2021-11-26] MEDS ORDERED: *HR* Promethazine 25 MG/ML VIAL IM PRN (20:27)
[2021-11-26] MEDS ORDERED: *HR* LORazepam 2 MG/ML VIAL IVP PRN ×3 (20:31)
[2021-11-27 03:41] LABS: Basophils % 0.5 %
[2021-11-27 03:43] LABS: Eosinophils # 0.2 K/mcL (0.0-0.6); Eosinophils % 2.4 %; Hematocrit 33.3 % (35.3-44.9); Hemoglobin 11.4 g/dL (11.5-15.4); Immature Granulocytes % 0.2 % (0-4); Immature Platelets 5.9 % (1.1-6.1); Lymphocytes # 1.6 K/mcL (0.6-4.6); Lymphocytes % 25.4 %; Mean Corpuscular HGB Conc 34.2 g/dL (31.6-35.5); Mean Corpuscular Hemoglobin 33.4 pg (28.0-33.3); Mean Corpuscular Volume 97.7 fL (83.0-100.0); Monocytes # 0.6 K/mcL (0.0-1.3); Monocytes % 10.1 %; Neutrophils # 3.8 K/mcL (1.6-8.9); Platelet Count 102 K/mcL (140-400); Red Blood Count 3.41 M/mcL (3.82-4.97); Red Cell Distribution Width 13.7 % (11.5-14.5); Segmented Neutrophils % 61.4 %; White Blood Count 6.2 K/mcL (4.3-11.1)
[2021-11-27 03:44] LABS: BUN/Creatinine Ratio 25 (6-26); Blood Urea Nitrogen 25 mg/dL (8-23); Calcium 8.2 mg/dL (8.6-10.3); Carbon Dioxide 21 mEq/L (23-29); Chloride 105 mEq/L (98-107); Glucose 81 mg/dL (70-105); Magnesium 1.3 mg/dL (1.6-2.6); Osmolality,Calculated 289 (280-300); Potassium 3.6 mEq/L (3.5-5.1); Sodium 138 mEq/L (136-145); eGFR For African Americans > 60 (> 60); eGFR For Non-African Americans 55 (> 60)
[2021-11-27 04:03] LABS: INR 1.1; Prothrombin Time 12.8 Seconds (9.4-12.1)
[2021-11-27] MEDS: levETIRAcetam 250 MG TABLET PO SCH ×2 (05:32→17:24)
[2021-11-27] MEDS: Thiamine (B-1) 100 MG TABLET PO SCH (08:32)
[2021-11-27] MEDS: Vitamin B Complex/Vit C/Vit E 1 EACH TABLET PO SCH (08:33)
[2021-11-27] MEDS: Lisinopril-HCTZ 20-12.5mg TABLET PO SCH (08:33)
[2021-11-27] MEDS: Folic Acid 1 MG TABLET PO SCH (08:33)
[2021-11-27 16:54] LABS: Adenovirus F 40/41 PCR Not detected (Not detect); Astrovirus PCR Not detected (Not detect); C.difficile Toxin A/B Gene PCR Not detected (Not detect); Campylobacter by PCR Not detected (Not detect); Cryptosporidium by PCR Not detected (Not detect); Cyclospora cayetanensis PCR Not detected (Not detect); E. coli O157 by PCR Not detected (Not detect); Entamoeba histolytica PCR Not detected (Not detect); Enteroaggregative E.coli(EAEC) Not detected (Not detect); Enteropathogenic E.coli(EPEC) Not detected (Not detect); Enterotoxigenic E.coli (ETEC) Not detected (Not detect); Giardia lamblia PCR Not detected (Not detect); Norovirus GI/GII PCR Not detected (Not detect); Plesiomonas shigelloides PCR Not detected (Not detect); Rotavirus A PCR Not detected (Not detect); Salmonella PCR Not detected (Not detect); Sapovirus PCR Not detected (Not detect); Shig/EnteroinvasiveE coli EIEC Not detected (Not detect); Shigalike tox-prod E coli STEC Not detected (Not detect); Vibrio PCR Not detected (Not detect); Vibrio cholerae PCR Not detected (Not detect); Yersinia enterocolitica PCR Not detected (Not detect)
[2021-11-27] MEDS: *HR* Heparin 5,000 UNIT/ML VIAL SQ SCH (17:24)
[2021-11-27] MEDS: Ondansetron 4 MG/2 ML VIAL IVP PRN ×2 (19:24)
[2021-11-28 02:32] LABS: Calcium 8.7 mg/dL (8.6-10.3)
[2021-11-28] MEDS: levETIRAcetam 250 MG TABLET PO SCH ×2 (05:35→16:14)
[2021-11-28] MEDS: *HR* Heparin 5,000 UNIT/ML VIAL SQ SCH ×2 (05:36→16:14)
[2021-11-28] MEDS: Lisinopril-HCTZ 20-12.5mg TABLET PO SCH (07:49)
[2021-11-28] MEDS: Vitamin B Complex/Vit C/Vit E 1 EACH TABLET PO SCH (07:49)
[2021-11-28] MEDS: Folic Acid 1 MG TABLET PO SCH (07:49)
[2021-11-28] MEDS: Thiamine (B-1) 100 MG TABLET PO SCH (07:49)
[2021-11-28] MEDS: Ondansetron 4 MG/2 ML VIAL IVP PRN ×2 (07:49→19:37)
[2021-11-28] MEDS: 0.9 % Sodium Chloride 1,000 ML IVC SCH ×2 (10:12→22:13)
[2021-11-28 13:20] LABS: Calcium 8.9 mg/dL (8.6-10.3); Potassium 4.2 mEq/L (3.5-5.1)
[2021-11-29] MEDS: levETIRAcetam 250 MG TABLET PO SCH (04:54)
[2021-11-29] MEDS: *HR* Heparin 5,000 UNIT/ML VIAL SQ SCH (04:55)
[2021-11-29] MEDS: Vitamin B Complex/Vit C/Vit E 1 EACH TABLET PO SCH (08:09)
[2021-11-29] MEDS: Folic Acid 1 MG TABLET PO SCH (08:09)
[2021-11-29] MEDS: Thiamine (B-1) 100 MG TABLET PO SCH (08:09)
[2021-11-29] MEDS: Ondansetron 4 MG/2 ML VIAL IVP PRN (09:19)
[2021-11-29 10:52] VITALS: BP 122/86; PULSE 92; TEMP 98.5; O2SAT 99
[2021-11-29 11:03] LABS: Magnesium 1.6 mg/dL (1.6-2.6)
[2021-11-29 11:04] LABS: Calcium 9.1 mg/dL (8.6-10.3)
== END 2021-11-29 14:10 | disposition home or self-care (01) | DRG 897 ==
LOC: 3BNU 08:58 → EMEROOARM 08:58 → 3BNU 23:02 → SUATTDRO 11-27 00:03
PROVIDERS: ADMIT Internal Medicine; ATTEND Internal Medicine

== ENCOUNTER 2022-01-01 10:25 | Inpatient (IN) ==
[2022-01-01 11:01] LABS: Basophils # 0.1 K/mcL (0.0-0.2); Basophils % 0.9 %; Eosinophils # 0.2 K/mcL (0.0-0.6); Eosinophils % 2.6 %; Hematocrit 41.2 % (35.3-44.9); Hemoglobin 13.8 g/dL (11.5-15.4); Immature Granulocytes % 0.9 % (0-4); Lymphocytes # 1.8 K/mcL (0.6-4.6); Lymphocytes % 27.9 %; Mean Corpuscular HGB Conc 33.5 g/dL (31.6-35.5); Mean Corpuscular Hemoglobin 32.5 pg (28.0-33.3); Mean Corpuscular Volume 96.9 fL (83.0-100.0); Mean Platelet Volume 10.6 fL (9.4-12.4); Monocytes # 0.4 K/mcL (0.0-1.3); Monocytes % 6.8 %; Neutrophils # 3.9 K/mcL (1.6-8.9); Platelet Count 137 K/mcL (140-400); Red Blood Count 4.25 M/mcL (3.82-4.97); Red Cell Distribution Width 13.8 % (11.5-14.5); Segmented Neutrophils % 60.9 %; White Blood Count 6.5 K/mcL (4.3-11.1)
[2022-01-01 11:58] LABS: Acetaminophen < 10 mcg/mL (10-20); Ethanol 218 mg/dL (Less than 10); Salicylate < 2.5 mg/dL (15.0-30.0)
[2022-01-01 12:43] LABS: Bilirubin,Urine Negative (Negative); Blood,Urine Negative (Negative); Clarity,Urine Clear (Clear); Color,Urine Colorless (Yellow); Glucose,Urine (UA) Normal (Normal); Ketones,Urine Negative (Negative); Leukocyte Esterase,Urine Negative (Negative); Nitrite,Urine Negative (Negative); PH,Urine 7.5 pH Units (5.0-8.0); Protein,Urine Negative (Neg-Trace); Urobilinogen,Urine Normal (Normal)
[2022-01-01 12:53] LABS: Amphetamine Screen,Urine Negative ng/mL (Cutoff=1000); Barbiturate Screen,Urine Negative ng/mL (Cutoff=200); Benzodiazepines Screen,Urine Positive ng/mL (Cutoff=200); Cannabinoid Screen,Urine Negative ng/mL (Cutoff = 50); Cocaine Screen,Urine Negative ng/mL (Cutoff= 300); Opiate Screen,Urine Negative ng/mL (Cutoff=300); Phencyclidine Screen,Urine Negative ng/mL (Cutoff=25)
[2022-01-01 12:54] LABS: BUN/Creatinine Ratio 17 (6-26); Blood Urea Nitrogen 16 mg/dL (8-23); Calcium 9.1 mg/dL (8.6-10.3); Carbon Dioxide 23 mEq/L (23-29); Chloride 99 mEq/L (98-107); Glucose 95 mg/dL (70-105); Osmolality,Calculated 283 (280-300); Potassium 4.2 mEq/L (3.5-5.1); Sodium 136 mEq/L (136-145); eGFR For African Americans > 60 (> 60); eGFR For Non-African Americans > 60 (> 60)
[2022-01-01] MEDS ORDERED: Naloxone 0.4 MG/ML INJ IVP PRN (15:38)
[2022-01-01] MEDS ORDERED: Ringers Solution, Lactated 1,000 ML IVC SCH (15:45)
[2022-01-01] MEDS ORDERED: *HR* LORazepam 2 MG/ML VIAL IVP PRN ×3 (15:48)
[2022-01-01] MEDS: *HR* Heparin 5,000 UNIT/ML VIAL SQ SCH (21:13)
[2022-01-02 03:12] LABS: Adenovirus F 40/41 PCR Not detected (Not detect); Astrovirus PCR Not detected (Not detect); C.difficile Toxin A/B Gene PCR Not detected (Not detect); Campylobacter by PCR Not detected (Not detect); Cryptosporidium by PCR Not detected (Not detect); Cyclospora cayetanensis PCR Not detected (Not detect); E. coli O157 by PCR Not detected (Not detect); Entamoeba histolytica PCR Not detected (Not detect); Enteroaggregative E.coli(EAEC) Not detected (Not detect); Enteropathogenic E.coli(EPEC) Not detected (Not detect); Enterotoxigenic E.coli (ETEC) Not detected (Not detect); Giardia lamblia PCR Not detected (Not detect); Norovirus GI/GII PCR Not detected (Not detect); Plesiomonas shigelloides PCR Not detected (Not detect); Rotavirus A PCR Not detected (Not detect); Salmonella PCR Not detected (Not detect); Sapovirus PCR Not detected (Not detect); Shig/EnteroinvasiveE coli EIEC Not detected (Not detect); Shigalike tox-prod E coli STEC Not detected (Not detect); Vibrio PCR Not detected (Not detect); Vibrio cholerae PCR Not detected (Not detect); Yersinia enterocolitica PCR Not detected (Not detect)
[2022-01-02] MEDS: *HR* Heparin 5,000 UNIT/ML VIAL SQ SCH ×3 (04:48→20:56)
[2022-01-02] MEDS: Folic Acid 1 MG TABLET PO SCH (08:34)
[2022-01-02] MEDS: Vitamin B Complex/Vit C/Vit E 1 EACH TABLET PO SCH (08:34)
[2022-01-02] MEDS: *HR* Metoprolol 5 MG/5 ML VIAL IVP PRN (16:20)
[2022-01-02] MEDS ORDERED: Melatonin 3 MG TABLET PO ONE (20:31)
[2022-01-03] MEDS: *HR* Heparin 5,000 UNIT/ML VIAL SQ SCH ×3 (05:24→20:12)
[2022-01-03] MEDS: Vitamin B Complex/Vit C/Vit E 1 EACH TABLET PO SCH (08:34)
[2022-01-03] MEDS: Folic Acid 1 MG TABLET PO SCH (08:34)
[2022-01-03] MEDS: *HR* Metoprolol 5 MG/5 ML VIAL IVP PRN ×3 (08:34→21:06)
[2022-01-03 09:24] LABS: Basophils % 0.9 %; Red Cell Distribution Width 13.4 % (11.5-14.5)
[2022-01-03 09:26] LABS: Basophils # 0.1 K/mcL (0.0-0.2); Eosinophils # 0.2 K/mcL (0.0-0.6); Eosinophils % 2.6 %; Hematocrit 36.4 % (35.3-44.9); Hemoglobin 12.4 g/dL (11.5-15.4); Immature Granulocytes % 0.5 % (0-4); Immature Platelets 6.4 % (1.1-6.1); Lymphocytes # 1.1 K/mcL (0.6-4.6); Lymphocytes % 18.4 %; Mean Corpuscular HGB Conc 34.1 g/dL (31.6-35.5); Mean Corpuscular Hemoglobin 33.2 pg (28.0-33.3); Mean Corpuscular Volume 97.3 fL (83.0-100.0); Mean Platelet Volume 10.9 fL (9.4-12.4); Monocytes # 0.7 K/mcL (0.0-1.3); Monocytes % 12.3 %; Neutrophils # 3.9 K/mcL (1.6-8.9); Platelet Count 116 K/mcL (140-400); Red Blood Count 3.74 M/mcL (3.82-4.97); Segmented Neutrophils % 65.3 %; White Blood Count 5.9 K/mcL (4.3-11.1)
[2022-01-03 09:38] LABS: Alanine Aminotransferase 48 Units/L (7-52); Albumin 4.3 g/dL (3.5-5.7); Albumin/Globulin Ratio 1.3 (1.1-2.2); Alkaline Phosphatase 88 Units/L (34-104); Aspartate Amino Transferase 141 Units/L (13-39); BUN/Creatinine Ratio 14 (6-26); Bilirubin,Total 1.2 mg/dL (0.3-1.0); Blood Urea Nitrogen 15 mg/dL (8-23); Calcium 9.3 mg/dL (8.6-10.3); Carbon Dioxide 22 mEq/L (23-29); Chloride 102 mEq/L (98-107); Globulin 3.2 g/dL (2.4-3.5); Glucose 155 mg/dL (70-105); Osmolality,Calculated 284 (280-300); Potassium 3.8 mEq/L (3.5-5.1); Sodium 135 mEq/L (136-145); Total Protein 7.5 g/dL (6.4-8.9); eGFR For African Americans > 60 (> 60); eGFR For Non-African Americans 50 (> 60)
[2022-01-03] MEDS: Melatonin 3 MG TABLET PO PRN (21:06)
[2022-01-04] MEDS: *HR* Heparin 5,000 UNIT/ML VIAL SQ SCH ×3 (04:33→22:31)
[2022-01-04] MEDS: Folic Acid 1 MG TABLET PO SCH (08:54)
[2022-01-04] MEDS: Vitamin B Complex/Vit C/Vit E 1 EACH TABLET PO SCH (08:54)
[2022-01-04] MEDS: *HR* Metoprolol 5 MG/5 ML VIAL IVP PRN ×2 (16:18→21:53)
[2022-01-04] MEDS: Melatonin 3 MG TABLET PO PRN (21:53)
[2022-01-05] MEDS: *HR* Heparin 5,000 UNIT/ML VIAL SQ SCH ×2 (06:13→13:42)
[2022-01-05] MEDS: Folic Acid 1 MG TABLET PO SCH (07:42)
[2022-01-05] MEDS: Vitamin B Complex/Vit C/Vit E 1 EACH TABLET PO SCH (07:42)
[2022-01-05] MEDS: *HR* Metoprolol 5 MG/5 ML VIAL IVP PRN (08:39)
[2022-01-05 14:23] VITALS: BP 138/89; PULSE 133; TEMP 99.4; O2SAT 96
[2022-01-05] MEDS ORDERED: Metoprolol XL (24 HR) Succ 25 MG TAB.ER.24H PO SCH (15:15)
== END 2022-01-05 16:33 | disposition home or self-care (01) | DRG 918 ==
LOC: EMEROOARM 10:25 → 3BNU 10:25
PROVIDERS: ADMIT Internal Medicine; ATTEND Internal Medicine

== ENCOUNTER 2022-02-02 10:45 | Observation (INO) ==
[2022-02-02] MEDS ORDERED: 0.9 % Sodium Chloride 1,000 ML IVC ONE (11:35)
[2022-02-02] MEDS ORDERED: *HR* LORazepam 2 MG/ML VIAL IVP ONE ×3 (11:35→16:51)
[2022-02-02 11:39] LABS: Bilirubin,Urine Negative (Negative); Blood,Urine Negative (Negative); Clarity,Urine Clear (Clear); Color,Urine Light-Yellow (Yellow); Glucose,Urine (UA) Normal (Normal); Ketones,Urine Negative (Negative); Leukocyte Esterase,Urine Negative (Negative); Nitrite,Urine Negative (Negative); PH,Urine 6.5 pH Units (5.0-8.0); Protein,Urine Trace mg/dL (Neg-Trace); Specific Gravity,Urine 1.013 (1.010-1.025); Urobilinogen,Urine Normal (Normal)
[2022-02-02 11:54] LABS: Amphetamine Screen,Urine Negative ng/mL (Cutoff=1000); Barbiturate Screen,Urine Negative ng/mL (Cutoff=200); Benzodiazepines Screen,Urine Positive ng/mL (Cutoff=200); Cannabinoid Screen,Urine Negative ng/mL (Cutoff = 50); Cocaine Screen,Urine Negative ng/mL (Cutoff= 300); Opiate Screen,Urine Negative ng/mL (Cutoff=300); Phencyclidine Screen,Urine Negative ng/mL (Cutoff=25)
[2022-02-02 13:12] LABS: Basophils # 0.1 K/mcL (0.0-0.2); Basophils % 0.8 %; Eosinophils % 0.3 %; Hematocrit 43.3 % (35.3-44.9); Hemoglobin 14.9 g/dL (11.5-15.4); Immature Granulocytes % 0.3 % (0-4); Lymphocytes # 1.5 K/mcL (0.6-4.6); Lymphocytes % 14.2 %; Mean Corpuscular HGB Conc 34.4 g/dL (31.6-35.5); Mean Corpuscular Hemoglobin 31.6 pg (28.0-33.3); Mean Corpuscular Volume 91.9 fL (83.0-100.0); Mean Platelet Volume 10.4 fL (9.4-12.4); Monocytes # 0.3 K/mcL (0.0-1.3); Monocytes % 3.3 %; Neutrophils # 8.5 K/mcL (1.6-8.9); Platelet Count 164 K/mcL (140-400); Red Blood Count 4.71 M/mcL (3.82-4.97); Red Cell Distribution Width 12.2 % (11.5-14.5); Segmented Neutrophils % 81.1 %; White Blood Count 10.4 K/mcL (4.3-11.1)
[2022-02-02 13:52] LABS: Acetaminophen < 10 mcg/mL (10-20); Alanine Aminotransferase 24 Units/L (7-52); Albumin 4.8 g/dL (3.5-5.7); Albumin/Globulin Ratio 1.2 (1.1-2.2); Alkaline Phosphatase 102 Units/L (34-104); Aspartate Amino Transferase 59 Units/L (13-39); BUN/Creatinine Ratio 11 (6-26); Bilirubin,Direct 0.2 mg/dL (0.0-0.2); Bilirubin,Indirect 0.8 mg/dL (0.0-1.0); Blood Urea Nitrogen 13 mg/dL (8-23); Calcium 10.1 mg/dL (8.6-10.3); Carbon Dioxide 21 mEq/L (23-29); Chloride 93 mEq/L (98-107); Ethanol < 10 mg/dL (Less than 10); Globulin 3.9 g/dL (2.4-3.5); Glucose 87 mg/dL (70-105); Osmolality,Calculated 277 (280-300); Potassium 4.4 mEq/L (3.5-5.1); Salicylate < 2.5 mg/dL (15.0-30.0); Sodium 134 mEq/L (136-145); Total Protein 8.7 g/dL (6.4-8.9); eGFR For African Americans 56 (> 60); eGFR For Non-African Americans 47 (> 60)
[2022-02-02] MEDS ORDERED: Naloxone 0.4 MG/ML INJ IVP PRN (17:20)
[2022-02-02] MEDS ORDERED: Melatonin 3 MG TABLET PO PRN (17:25)
[2022-02-02] MEDS ORDERED: Ondansetron 4 MG/2 ML VIAL IVP PRN (17:25)
[2022-02-02] MEDS ORDERED: Mag Hydrox/Al Hydrox/Simeth 30 ML UDC PO PRN (17:25)
[2022-02-02] MEDS ORDERED: *HR* LORazepam 2 MG/ML VIAL IVP PRN ×3 (17:31)
[2022-02-02] MEDS ORDERED: Thiamine (B-1) 100 MG, Folic Acid 1 MG, MVI, adult with vitamin K 10 ML in 0.9 % Sodi... IVPB SCH (18:00)
[2022-02-02] MEDS ORDERED: Folic Acid 1 MG in 0.9 % Sodium Chloride 50 ML IVPB SCH (18:00)
[2022-02-02] MEDS ORDERED: Thiamine (B-1) 100 MG in 0.9 % Sodium Chloride 50 ML IVPB SCH (18:00)
[2022-02-02] MEDS: Ringers Solution, Lactated 1,000 ML IVC SCH (19:32)
[2022-02-02] MEDS: *HR* Heparin 5,000 UNIT/ML VIAL SQ SCH (22:06)
[2022-02-03] MEDS: *HR* Heparin 5,000 UNIT/ML VIAL SQ SCH ×2 (04:23→13:12)
[2022-02-03] MEDS: Ringers Solution, Lactated 1,000 ML IVC SCH (06:03)
[2022-02-03] MEDS ORDERED: levETIRAcetam 500 MG/5 ML UDC PO SCH (09:00)
[2022-02-03] MEDS ORDERED: Multivit/Ca/Min/Fe/FA 1 TAB TABLET PO SCH (09:00)
[2022-02-03] MEDS ORDERED: LEVETIRACETAM 500 MG PO SCH (09:00)
[2022-02-03 09:27] LABS: BUN/Creatinine Ratio 12 (6-26); Blood Urea Nitrogen 13 mg/dL (8-23); Calcium 9.4 mg/dL (8.6-10.3); Carbon Dioxide 23 mEq/L (23-29); Chloride 99 mEq/L (98-107); Glucose 112 mg/dL (70-105); Magnesium 1.4 mg/dL (1.6-2.6); Osmolality,Calculated 279 (280-300); Potassium 3.4 mEq/L (3.5-5.1); Sodium 134 mEq/L (136-145); eGFR For African Americans > 60 (> 60); eGFR For Non-African Americans 50 (> 60)
[2022-02-03 09:36] LABS: Hematocrit 37.2 % (35.3-44.9); Hemoglobin 12.6 g/dL (11.5-15.4); Immature Platelets 5.5 % (1.1-6.1); Mean Corpuscular HGB Conc 33.9 g/dL (31.6-35.5); Mean Corpuscular Hemoglobin 32.1 pg (28.0-33.3); Mean Corpuscular Volume 94.7 fL (83.0-100.0); Mean Platelet Volume 10.8 fL (9.4-12.4); Red Blood Count 3.93 M/mcL (3.82-4.97); Red Cell Distribution Width 12.2 % (11.5-14.5); White Blood Count 6.4 K/mcL (4.3-11.1)
[2022-02-03 11:26] VITALS: BP 172/107; PULSE 105; TEMP 98.3; O2SAT 95
== END 2022-02-03 14:52 ==
LOC: EMEROOARM 10:45 → 3BNU 10:45 → SUATTDRO 16:55 → 3BNU 17:37
PROVIDERS: ADMIT Family Medicine; ATTEND Family Medicine

== ENCOUNTER 2022-05-24 13:08 | Inpatient (IN) ==
[2022-05-24] MEDS ORDERED: Naloxone 0.4 MG/ML INJ IVP ONE (13:31)
[2022-05-24] MEDS ORDERED: 0.9 % Sodium Chloride 1,000 ML IVC ONE ×2 (13:31→15:45)
[2022-05-24] MEDS ORDERED: *HR* Dextrose 50 % in Water (Syg) 50 ML SYRINGE IVP ONE (13:31)
[2022-05-24] MEDS ORDERED: Iopamidol - 370 500 ML MLS IVP ONE ×4 (13:31→18:22)
[2022-05-24 13:50] LABS: Basophils # 0.1 K/mcL (0.0-0.2); Basophils % 0.9 %; Eosinophils % 0.4 %; Hematocrit 41.5 % (35.3-44.9); Hemoglobin 14.7 g/dL (11.5-15.4); Immature Granulocytes % 0.1 % (0-4); Lymphocytes # 2.8 K/mcL (0.6-4.6); Lymphocytes % 40.3 %; Mean Corpuscular HGB Conc 35.4 g/dL (31.6-35.5); Mean Corpuscular Hemoglobin 31.9 pg (28.0-33.3); Mean Platelet Volume 10.3 fL (9.4-12.4); Monocytes # 0.2 K/mcL (0.0-1.3); Monocytes % 3.2 %; Neutrophils # 3.8 K/mcL (1.6-8.9); Platelet Count 175 K/mcL (140-400); Red Blood Count 4.61 M/mcL (3.82-4.97); Red Cell Distribution Width 11.8 % (11.5-14.5); Segmented Neutrophils % 55.1 %; White Blood Count 6.9 K/mcL (4.3-11.1)
[2022-05-24 13:58] LABS: INR 1.1
[2022-05-24 14:01] LABS: Activated Partial Thrombo Time 36.4 Seconds (26.0-36.0)
[2022-05-24 14:15] LABS: Bilirubin,Urine Negative (Negative); Blood,Urine Negative (Negative); Clarity,Urine Clear (Clear); Color,Urine Colorless (Yellow); Glucose,Urine (UA) Normal (Normal); Ketones,Urine 10 mg/dL (Negative); Leukocyte Esterase,Urine Negative (Negative); Nitrite,Urine Negative (Negative); PH,Urine 5.5 pH Units (5.0-8.0); Protein,Urine Trace mg/dL (Neg-Trace); Specific Gravity,Urine 1.014 (1.010-1.025); Urobilinogen,Urine Normal (Normal)
[2022-05-24 14:27] LABS: Amphetamine Screen,Urine Negative ng/mL (Cutoff=1000); Barbiturate Screen,Urine Negative ng/mL (Cutoff=200); Benzodiazepines Screen,Urine Positive ng/mL (Cutoff=200); Cannabinoid Screen,Urine Negative ng/mL (Cutoff = 50); Cocaine Screen,Urine Negative ng/mL (Cutoff= 300); Opiate Screen,Urine Negative ng/mL (Cutoff=300); Phencyclidine Screen,Urine Negative ng/mL (Cutoff=25)
[2022-05-24 15:09] LABS: Alanine Aminotransferase 31 Units/L (7-52); Albumin 4.7 g/dL (3.5-5.7); Albumin/Globulin Ratio 1.4 (1.1-2.2); Alkaline Phosphatase 95 Units/L (34-104); Aspartate Amino Transferase 55 Units/L (13-39); BUN/Creatinine Ratio 21 (6-26); Bilirubin,Direct 0.2 mg/dL (0.0-0.2); Bilirubin,Indirect 0.6 mg/dL (0.0-1.0); Bilirubin,Total 0.8 mg/dL (0.3-1.0); Blood Urea Nitrogen 21 mg/dL (8-23); Calcium 8.9 mg/dL (8.6-10.3); Carbon Dioxide 17 mEq/L (23-29); Chloride 84 mEq/L (98-107); Ethanol 259 mg/dL (Less than 10); Globulin 3.4 g/dL (2.4-3.5); Glucose 118 mg/dL (70-105); Osmolality,Calculated 256 (280-300); Potassium 4.1 mEq/L (3.5-5.1); Sodium 121 mEq/L (136-145); Total Protein 8.1 g/dL (6.4-8.9); Troponin I < 0.03 ng/mL (< 0.04); eGFR For African Americans > 60 (> 60); eGFR For Non-African Americans 56 (> 60)
[2022-05-24] MEDS ORDERED: *HR* LORazepam 2 MG/ML VIAL IVP PRN ×2 (17:15)
[2022-05-24] MEDS ORDERED: Ketorolac 30 MG/ML VIAL IVP ONE (17:16)
[2022-05-24] MEDS: *HR* LORazepam 2 MG/ML VIAL IVP PRN (17:34)
[2022-05-24] MEDS ORDERED: levETIRAcetam 1,000 MG in 0.9 % Sodium Chloride 100 ML IVPB ONE (17:53)
[2022-05-24] MEDS ORDERED: Thiamine (B-1) 100 MG, Folic Acid 1 MG, MVI, adult with vitamin K 10 ML in 0.9 % Sodi... IVPB SCH (18:00)
[2022-05-24] MEDS ORDERED: Acetaminophen 325 MG TABLET PO PRN (18:04)
[2022-05-24] MEDS ORDERED: Naloxone 0.4 MG/ML INJ IVP PRN (18:04)
[2022-05-24] MEDS ORDERED: Ondansetron 4 MG/2 ML VIAL IVP PRN (18:04)
[2022-05-24] MEDS ORDERED: *HR* Labetalol 20 MG/4 ML SYRINGE IVP PRN (18:32)
[2022-05-24 19:51] LABS: BUN/Creatinine Ratio 21 (6-26); Blood Urea Nitrogen 18 mg/dL (8-23); Calcium 8.2 mg/dL (8.6-10.3); Carbon Dioxide 12 mEq/L (23-29); Chloride 86 mEq/L (98-107); Glucose 63 mg/dL (70-105); Osmolality,Calculated 244 (280-300); Potassium 4.5 mEq/L (3.5-5.1); Sodium 117 mEq/L (136-145); eGFR For African Americans > 60 (> 60); eGFR For Non-African Americans > 60 (> 60)
[2022-05-24] MEDS: 0.9 % Sodium Chloride 1,000 ML IVC SCH (20:33)
[2022-05-24] MEDS ORDERED: *HR* LORazepam 2 MG/ML VIAL IVP ONE (20:57)
[2022-05-24] MEDS: *HR* LORazepam 0.5 MG TABLET PO SCH (22:37)
[2022-05-25] MEDS: *HR* LORazepam 2 MG/ML VIAL IVP PRN ×4 (02:50→23:39)
[2022-05-25 06:23] LABS: Basophils # 0.1 K/mcL (0.0-0.2); Basophils % 0.7 %; Eosinophils # 0.1 K/mcL (0.0-0.6); Eosinophils % 0.8 %; Hematocrit 39.3 % (35.3-44.9); Hemoglobin 13.7 g/dL (11.5-15.4); Immature Granulocytes % 0.4 % (0-4); Lymphocytes # 1.7 K/mcL (0.6-4.6); Lymphocytes % 16.3 %; Mean Corpuscular HGB Conc 34.9 g/dL (31.6-35.5); Mean Corpuscular Hemoglobin 32.2 pg (28.0-33.3); Mean Corpuscular Volume 92.5 fL (83.0-100.0); Mean Platelet Volume 10.1 fL (9.4-12.4); Monocytes # 0.7 K/mcL (0.0-1.3); Monocytes % 6.9 %; Neutrophils # 7.9 K/mcL (1.6-8.9); Platelet Count 112 K/mcL (140-400); Red Blood Count 4.25 M/mcL (3.82-4.97); Red Cell Distribution Width 11.9 % (11.5-14.5); Segmented Neutrophils % 74.9 %
[2022-05-25 06:24] LABS: White Blood Count 10.5 K/mcL (4.3-11.1)
[2022-05-25] MEDS ORDERED: Calcium Gluconate 1gm/50mL 1 GM/50 ML BAG IVPB ONE (06:47)
[2022-05-25] MEDS: 0.9 % Sodium Chloride 1,000 ML IVC SCH (07:23)
[2022-05-25 07:28] LABS: Folate > 22.3 ng/mL (3.0-16.0); Vitamin B12 781 pg/mL (250-1100)
[2022-05-25] MEDS ORDERED: *HR* Dextrose 50 % in Water (Syg) 50 ML SYRINGE IVP ONE (07:59)
[2022-05-25] MEDS: *HR* Enoxaparin 40 MG/0.4 ML SYRINGE SQ SCH (08:06)
[2022-05-25] MEDS: *HR* LORazepam 0.5 MG TABLET PO SCH ×3 (08:07→20:14)
[2022-05-25] MEDS: *HR* OxyCODONE Immed Rel 5 MG TABLET PO PRN ×2 (09:14→17:47)
[2022-05-25 10:04] LABS: Potassium,Urine 32.8 mEq/L; Protein/Creatinine Ratio,Urine 0.5 mg/mg (0.00-0.20); Sodium, Urine 76.5 mEq/L
[2022-05-25] MEDS: levETIRAcetam 250 MG TABLET PO SCH ×2 (10:31→14:45)
[2022-05-25 12:40] LABS: BUN/Creatinine Ratio 16 (6-26); Blood Urea Nitrogen 16 mg/dL (8-23); Calcium 9.6 mg/dL (8.6-10.3); Carbon Dioxide 19 mEq/L (23-29); Chloride 90 mEq/L (98-107); Glucose 76 mg/dL (70-105); Magnesium 1.9 mg/dL (1.6-2.6); Osmolality,Calculated 264 (280-300); Sodium 127 mEq/L (136-145); Thyroid Stimulating Hormone 1.234 mcIU/mL (0.340-5.600); eGFR For African Americans > 60 (> 60); eGFR For Non-African Americans 57 (> 60)
[2022-05-25] MEDS: *HR* HYDROcodone/Acet 5/325 mg TABLET PO PRN ×2 (13:27→20:13)
[2022-05-25 14:33] LABS: BUN/Creatinine Ratio 15 (6-26); Blood Urea Nitrogen 16 mg/dL (8-23); Calcium 9.4 mg/dL (8.6-10.3); Carbon Dioxide 23 mEq/L (23-29); Chloride 91 mEq/L (98-107); Glucose 103 mg/dL (70-105); Osmolality,Calculated 263 (280-300); Potassium 3.9 mEq/L (3.5-5.1); Sodium 126 mEq/L (136-145); eGFR For African Americans > 60 (> 60); eGFR For Non-African Americans 52 (> 60)
[2022-05-25] MEDS ORDERED: Mag Hydrox/Al Hydrox/Simeth 30 ML UDC PO PRN (14:42)
[2022-05-25 18:27] LABS: BUN/Creatinine Ratio 15 (6-26); Blood Urea Nitrogen 17 mg/dL (8-23); Calcium 9.4 mg/dL (8.6-10.3); Carbon Dioxide 25 mEq/L (23-29); Chloride 91 mEq/L (98-107); Glucose 108 mg/dL (70-105); Osmolality,Calculated 266 (280-300); Potassium 3.7 mEq/L (3.5-5.1); Sodium 127 mEq/L (136-145); eGFR For African Americans > 60 (> 60); eGFR For Non-African Americans 50 (> 60)
[2022-05-25 22:08] LABS: Calcium 9.3 mg/dL (8.6-10.3); Potassium 3.8 mEq/L (3.5-5.1)
[2022-05-26] MEDS: *HR* HYDROcodone/Acet 7.5/325 mg TABLET PO PRN ×2 (02:37→13:26)
[2022-05-26 03:54] LABS: Calcium 9.3 mg/dL (8.6-10.3); Magnesium 1.8 mg/dL (1.6-2.6); Potassium 3.5 mEq/L (3.5-5.1)
[2022-05-26] MEDS: levETIRAcetam 250 MG TABLET PO SCH (05:12)
[2022-05-26 06:07] LABS: Basophils % 0.6 %; Eosinophils # 0.4 K/mcL (0.0-0.6); Hematocrit 34.2 % (35.3-44.9); Immature Granulocytes % 0.2 % (0-4); Lymphocytes # 0.8 K/mcL (0.6-4.6); Lymphocytes % 16.8 %; Mean Corpuscular HGB Conc 34.2 g/dL (31.6-35.5); Mean Corpuscular Volume 93.4 fL (83.0-100.0); Mean Platelet Volume 10.8 fL (9.4-12.4); Monocytes # 0.4 K/mcL (0.0-1.3); Monocytes % 8.2 %; Neutrophils # 3.3 K/mcL (1.6-8.9); Platelet Count 100 K/mcL (140-400); Red Blood Count 3.66 M/mcL (3.82-4.97); Red Cell Distribution Width 11.7 % (11.5-14.5); Segmented Neutrophils % 66.2 %
[2022-05-26 06:16] LABS: Hemoglobin 11.7 g/dL (11.5-15.4)
[2022-05-26 07:01] LABS: Calcium 9.4 mg/dL (8.6-10.3); Potassium 3.7 mEq/L (3.5-5.1)
[2022-05-26] MEDS: *HR* Enoxaparin 40 MG/0.4 ML SYRINGE SQ SCH (07:59)
[2022-05-26] MEDS: *HR* LORazepam 0.5 MG TABLET PO SCH (07:59)
[2022-05-26] MEDS ORDERED: Albuterol 2.5 MG/3 ML NEBULIZER IH PRN (08:09)
[2022-05-26] MEDS ORDERED: Famotidine 20 MG/2 ML VIAL IVP ONE (08:23)
[2022-05-26] MEDS ORDERED: HydrOXYzine 100 MG/2 ML VIAL IM ONE (08:24)
[2022-05-26] MEDS ORDERED: Metoprolol XL (24 HR) Succ 25 MG TAB.ER.24H PO SCH (09:00)
[2022-05-26] MEDS ORDERED: Gabapentin 300 MG CAPSULE PO SCH (09:00)
[2022-05-26] MEDS ORDERED: LEVETIRACETAM 500 MG PO SCH (09:00)
[2022-05-26] MEDS ORDERED: Multivit/Ca/Min/Fe/FA 1 TAB TABLET PO SCH (09:00)
[2022-05-26 10:26] VITALS: BP 144/84; PULSE 91; TEMP 97.7; O2SAT 99
[2022-05-26 11:02] LABS: Hepatitis B Surface Antigen Nonreactive (Nonreactive)
[2022-05-26 11:31] LABS: Hepatitis C Virus Antibody Nonreactive (Nonreactive)
[2022-05-26 11:32] LABS: Hepatitis A Antibody IgM Nonreactive (Nonreactive)
[2022-05-26 12:12] LABS: Calcium 9.5 mg/dL (8.6-10.3)
[2022-05-26 12:13] LABS: Calcium 9.4 mg/dL (8.6-10.3); Potassium 4.1 mEq/L (3.5-5.1)
[2022-05-27] MEDS ORDERED: Thiamine (B-1) 100 MG TABLET PO SCH (09:00)
[2022-05-27] MEDS ORDERED: Vitamin B Complex/Vit C/Vit E 1 EACH TABLET PO SCH (09:00)
[2022-05-27] MEDS ORDERED: Folic Acid 1 MG TABLET PO SCH (09:00)
== END 2022-05-26 15:46 | disposition home or self-care (01) | DRG 640 ==
LOC: EMEROOARM 13:08 → 3ANU 13:08 → 3BNU 13:08 → SUATTDRO 17:48 → 3BNU 18:40
PROVIDERS: ADMIT Pharmacist; ATTEND Pharmacist